=== PATIENT | female | born 1935 | race Caucasian/White ===

== ENCOUNTER 2019-10-08 12:22 | Observation (INO) ==
--- NOTE | 2019-10-08 12:54 | ERNOTE ---
Dyspnea - Date Date of Service: 10/08/19 - General Presenting Symptoms: shortness of breath Time Seen by Provider: 10/08/19 12:45 Source: RN notes reviewed, [facility] records Exam Limitations: dementia - Immun/Allergies/Home Medications Immunizations: IMMUNIZATION HX Immunizations Up to Date Yes History of Influenza Vaccine Yes Hx Pneumococcal Vaccination Yes Allergies/Adverse Reactions: Allergies No Known Allergies Allergy (Verified 10/08/19 17:03) Home Medications: HOME MEDICATIONS aspirin 81 mg chewable tablet 81 mg PO DAILY 04/21/19 [Last Taken Unknown] oxybutynin chloride 5 mg tablet 5 mg PO HS 04/21/19 [Last Taken Unknown] pantoprazole 40 mg tablet,delayed release 40 mg PO DAILY 04/21/19 [Last Taken Unknown] potassium chloride 10 mEq tablet,extended release 10 meq PO DAILY 04/21/19 [Last Taken Unknown] sertraline 100 mg tablet 75 mg PO DAILY 04/21/19 [Last Taken Unknown] Lactobacillus acidophilus 10,000 mmu cells PO BID 06/08/19 [Last Taken Unknown] acetaminophen 500 mg tablet 500 mg PO Q6H 06/08/19 [Last Taken Unknown] budesonide 0.5 mg/2 mL suspension for nebulization 0.5 mg IH BID #60 ml 06/08/19 [Last Taken Unknown] calcium carbonate 600 mg (1,500 mg)-vitamin D3 500 unit capsule 1 cap PO DAILY cap 06/08/19 [Last Taken Unknown] fludrocortisone 0.1 mg tablet 0.1 mg PO DAILY #28 tab 06/08/19 [Last Taken Unknown] ipratropium-albuterol 0.5 mg-3 mg(2.5 mg base)/3 mL nebulization soln 3 ml IH Q4H 06/08/19 [Last Taken Unknown] albuterol sulfate 2.5 mg IH Q2H PRN 07/13/19 [Last Taken Unknown] albuterol sulfate 90 mcg/actuation aerosol inhaler 1 puff IH Q4H PRN #85 g 07/13/19 [Last Taken Unknown] loperamide 2 mg capsule 2 mg PO Q4H PRN 07/13/19 [Last Taken Unknown] Cyanocobalamin (Vitamin B-12) [Vitamin B12] 500 mcg PO DAILY 10/08/19 [Last Taken Unknown] - History of Present Illness Narrative: The patient is a 84 year old female who presents from [facility] with report from nursing staff were told in report from the [facility] that patient had developed a cough with low grade fever which began today. There are reported associated symptoms of cough. The patient denies pain. There are no alleviating factors. There are no aggravating factors. Previous treatments have included: albuterol neb given [employer] with unknown improvement. The past medical history includes: COPD, GERD, anemia, depression, DM, PUD and renal cell carcinoma. The social history is positive for former smoker. The patient has had no known ill contacts. Patient upon arrival is oriented only to first name without respiratory distress noted. Patient wearing O2 2l/nc which was reported from [facility] as chronic use for patient. Review of Systems - Narrative Narrative: Unable to obtain ROS from patient due to AMS. ROS obtained from nursing and report from care facility which patient resides. - Review of Systems Constitutional: Absent: fever ENT: Absent: nose congestion, nasal drainage Respiratory: Present: shortness of breath, cough Gastrointestinal/Abdominal: Absent: vomiting, diarrhea Medical History (Last Reviewed 10/08/19 @ 13:34 by BANDAR Eng) Back pain (Chronic) Chronic respiratory failure (Chronic) Renal cell carcinoma (Chronic) Osteoarthritis (Chronic) Osteoporosis (Chronic) Type II diabetes mellitus (Chronic) HTN (hypertension) (Chronic) COPD (chronic obstructive pulmonary disease) (Chronic) Frequent falls Anemia Arthritis COPD (chronic obstructive pulmonary disease) Chronic respiratory failure Depression GERD (gastroesophageal reflux disease) Hypotension Osteoarthritis Osteoporosis PUD (peptic ulcer disease) Protein-energy malnutrition Renal cell carcinoma Type II diabetes mellitus Pleural effusion Surgical History: Surgical History (Last Reviewed 10/08/19 @ 13:34 by BANDAR Eng) H/O endoscopy Onset Date: ~04/22/13 History of appendectomy Onset Date: Unknown History of bronchoscopy Onset Date: ~04/28/18 History of cataract surgery Onset Date: ~09/01/02 History of colonoscopy Onset Date: ~06/2003 History of exploratory laparotomy Onset Date: ~12/23/12 2014 History of left knee replacement Onset Date: ~2002 History of nasal sinusotomy Onset Date: ~2007 History of nephrectomy Onset Date: ~08/25/95 Family History: Family History (Last Reviewed 10/08/19 @ 13:34 by BANDAR Eng) Brother Heart disease Mother Myocardial infarction Sister Cancer colon cancer Social History: (Last Reviewed 10/08/19 @ 13:34 by BANDAR Eng) Social History: [facility]: Yes current occupational status: retired Tobacco: Smoking Status: Former smoker Alcohol: alcohol intake: never Substance Use: substance use type: does not use Dietary Habits: caffeine: No Physical Exam - Physical Exam General Appearance: Present: wd/wn, alert, no apparent distress Head Exam: Present: normal inspection, no evidence of injury Eye Exam: Normal inspection: bilateral, PERRL: bilateral, EOMI: bilateral Neck: Present: normal inspection, nontender Respiratory: Present: no respiratory distress, no accessory muscle use, decreased breath sounds Cardiovascular/Chest: Present: regular rate, rhythm, no murmur Gastrointestinal/Abdominal: Present: normal bowel sounds, nontender, nondistended, soft, no organomegaly Extremity Exam: Present: no edema Neurological Exam: Present: alert, normal mood/affect, no motor/sensory deficits, disoriented to time, disoriented to place, disoriented to situation. Absent: motor weakness, disoriented to person - oriented to first name only Skin Exam: Present: normal color, warm/dry Progress - Date and Time Seen: Date and Time: 10/08/19 15:19 Case discussed with and will admit for persistent AMS. Will treat patient with antibiotics due to positive strep swab with mild elevation to WBC. Patient denies throat pain but due to altered mental status is difficult to exclude for actual infection. After discussion with requests MRI brain for further evaluation. Patient labs and UA not consistent with dehydration or severe infection along with negative cxr to explain new onset AMS. 10/08/19 17:13 Report from [facility] reports that patient is typically alert and oriented, patient was found to have alteration this am around 0800 during medication pass. - Results and Orders Patient's Lab Results:: I have reviewed the patient's lab results. - Vital Signs Patient's Vital Signs:: I have reviewed the patient's vital signs. Vital Signs: Vital Signs 10/08/19 12:27 Temperature 37.8 C Pulse Rate 97 Respiratory Rate 18 Blood Pressure 137/85 O2 Sat by Pulse Oximetry 97 - EKG EKG #1 EKG: NSR - rate - X-Ray X-Ray #1 X-Ray: chest Interpretation: Reviewed by me X-ray Comments: IMPRESSION: No acute cardiopulmonary process detected Electronically signed by Arnav Donovan M.D.. - CT/Ultrasound CT/Ultrasound Narrative: Impression: No acute intracranial process detected. Electronically signed by Arnav Donovan M.D.. - Progress/Reassessment Chief Complaint: Dyspnea Progress:: Unchanged Departure Clinical Impression: Strep throat Altered mental status Qualifiers: Altered mental status type: unspecified Qualified Code(s): R41.82 - Altered mental status, unspecified - Departure Disposition: Still a patient Condition: Stable
[2019-10-08 13:04] LABS: Hematocrit 39.7 % (37.0-47.0); Hemoglobin 12.5 gm/dL (12.5-16.0); Mean Cell Volume 96.1 fl (78-100); Mean Corpuscular Hemoglobin 30.3 pg (27-31); Mean Corpuscular Hgb Conc 31.5 g/dl (32-36); Mean Platelet Volume 10.6 fl (8-12.5); Neutrophil # 9.8 K/mm3 (1.3-6.0); Neutrophil % 76.6 % (42-75.0); Platelet Count 365 K/mm3 (150-450); Red Blood Count 4.13 M/mm3 (4.2-5.4); Red Cell Distribution Width 13.7 % (11.5-14.0); White Blood Count 12.8 K/mm3 (4.0-10.5)
[2019-10-08 13:20] LABS: ALT 11 U/L (19-67); AST 17 U/L (0-48); Albumin * 3.3 gm/dl (3.4-5.0); Alkaline Phosphatase * 114 U/L (50-170); Anion Gap 13.1 mmol/L (6.8-13.8); BUN/Creatinine Ratio 22.2 (9.0-21.6); Bilirubin, Total 0.3 mg/dL (0.0-1.1); Blood Urea Nitrogen 16 mg/dL (3-23); Ca. Corrected For Albumin 9.9 mg/dL (8.4-10.2); Calcium * 9.7 mg/dL (7.9-10.9); Carbon Dioxide 30.4 mmol/L (24-32.6); Chloride 99 mmol/L (97-106); Glucose * 150 mg/dL (70-110); Potassium 4.5 mmol/L (3.4-4.6); Sodium 138 mmol/L (132-142); Total Protein 8.6 gm/dL (6.2-8.2); Troponin I Less than 0.017 ng/mL (0.00-0.10)
[2019-10-08 14:00] LABS: Urine Bilirubin Negative (NEGATIVE); Urine Ketone Negative (NEGATIVE); Urine Nitrite Negative (NEGATIVE); Urine Protein Negative (NEGATIVE); Urine Specific Gravity 1.015 SP.GR. (1.005-1.010); Urine Urobilinogen Normal (NORMAL)
[2019-10-08 14:12] LABS: Urine Appearance Slightly Cloudy (CLEAR); Urine Bacteria None Seen; Urine Blood 5 /ul (NEGATIVE); Urine Color Yellow; Urine WBC None Seen /hpf (0-5)
[2019-10-08] MEDS ORDERED: LORazepam 2 MG/ML DISP.SYRIN IV ONE (15:49)
[2019-10-08] MEDS ORDERED: ACETAMINOPHEN 500 MG TABLET PO PRN (17:37)
[2019-10-08] MEDS ORDERED: PANTOPRAZOLE SODIUM 40 MG in NORMAL SALINE 100 ML IV SCH (17:45)
[2019-10-08] MEDS ORDERED: LOPERAMIDE HCL 2 MG CAPSULE PO PRN (17:47)
[2019-10-08] MEDS ORDERED: ALBUTEROL SULFATE 2.5 MG/0.5 ML VIAL.NEB IH PRN (17:47)
[2019-10-08] MEDS ORDERED: NON-FORMULARY 1 DOSE DOSE (Albuterol Sulfate 2.5 MG) IH PRN (17:47)
[2019-10-08] MEDS ORDERED: BUDESONIDE 0.5 MG/2 ML VIAL.NEB IH SCH (19:00)
[2019-10-08] MEDS ORDERED: ALBUTEROL SULFATE/IPRATROPIUM 3 ML NEBU IH SCH (19:00)
--- NOTE | 2019-10-08 19:05 | HP ---
Chief Complaint - Chief Complaint Date of Service: 10/08/19 Time of Service: 18:22 Chief Complaint: Px is nonverbal. History of Present Illness: 84-year-old female with past medical history of anemia, osteoarthritis, chronic respiratory failure, COPD, depression, GERD, hypertension, osteoporosis, peptic ulcer disease, renal cell carcinoma was brought to the ER from the [facility] for evaluation of cough and a low-grade fever as well as worsening confusion and disorientation x3 that started this morning. residential staff report that the patient is usually lucid and communicates without any issues but when staff went in to give med this morning she appeared confused and was not responding to questions or following commands. They denied any sick contacts. Patient did not show any motor weakness but had obvious aphasia, she spoke and nonsensical speech that were not appropriate to questions. No LOC or seizure activity were reported and staff report that the patient was in her usual state of health before being discovered in the state this morning. There were no recent illness reported. She also had shortness of breath and low saturation below her baseline. Patient is normally on oxygen by nasal cannula which maintains adequate oxygen saturation. EMS was called and patient was transported to the ER. Medical History (Last Reviewed 10/08/19 @ 17:02 by Mary Kate Olvera RN) Back pain (Chronic) Chronic respiratory failure (Chronic) Renal cell carcinoma (Chronic) Osteoarthritis (Chronic) Osteoporosis (Chronic) Type II diabetes mellitus (Chronic) HTN (hypertension) (Chronic) COPD (chronic obstructive pulmonary disease) (Chronic) Frequent falls Anemia Arthritis COPD (chronic obstructive pulmonary disease) Chronic respiratory failure Depression GERD (gastroesophageal reflux disease) Hypotension Osteoarthritis Osteoporosis PUD (peptic ulcer disease) Protein-energy malnutrition Renal cell carcinoma Type II diabetes mellitus Pleural effusion Surgical History: Surgical History (Last Reviewed 10/08/19 @ 17:02 by Mary Kate Olvera RN) H/O endoscopy Onset Date: ~04/22/13 History of appendectomy Onset Date: Unknown History of bronchoscopy Onset Date: ~04/28/18 History of cataract surgery Onset Date: ~09/01/02 History of colonoscopy Onset Date: ~06/2003 History of exploratory laparotomy Onset Date: ~12/23/12 2014 History of left knee replacement Onset Date: ~2002 History of nasal sinusotomy Onset Date: ~2007 History of nephrectomy Onset Date: ~08/25/95 Family History: Family History (Last Reviewed 10/08/19 @ 17:02 by Mary Kate Olvera RN) Brother Heart disease Mother Myocardial infarction Sister Cancer colon cancer Social History: (Last Reviewed 10/08/19 @ 17:02 by Mary Kate Olvera RN) Social History: custodial: Yes current occupational status: retired Tobacco: Smoking Status: Former smoker Alcohol: alcohol intake: never Substance Use: substance use type: does not use Dietary Habits: caffeine: No Peds Patient Hx - Developmental: No Pertinent Hx Peds Patient Hx - Medical: No Pertinent Hx Peds Patient Hx - Cardiac/Respiratory: No Pertinent Hx Peds Patient Hx - Surgical: No Surgical History Patient History - Cancer: No Hx of Cancer Review Of Systems (GEN) - Review of Systems Generalized/Overall Review: Present: No Symptoms Reported EENTM: Present: No Symptoms Reported Respiratory: Present: Shortness of Breath - Ordered so majority this tomorrow has been coming just although they take in almost 3 weeks that I still have not gotten anything so Cardiac: Present: No Symptoms Reported Abdominal: Present: No Symptoms Reported Genitourinary: Present: No Symptoms Reported Musculoskeletal: Present: No Symptoms Reported Neurological: Present: Other - disorientation x3, increasing confusion Skin: Present: No Symptoms Reported Endocrine: Present: No Symptoms Reported Immunizations: IMMUNIZATION HX Immunizations Up to Date Yes History of Influenza Vaccine Yes Hx Pneumococcal Vaccination Yes Allergies/Adverse Reactions: Allergies Allergy/AdvReac Type Severity Reaction Status Date / Time No Known Allergies Allergy Verified 10/08/19 17:03 Home Medications: HOME MEDICATIONS aspirin 81 mg chewable tablet 81 mg PO DAILY 04/21/19 [Last Taken 10/08/19] oxybutynin chloride 5 mg tablet 5 mg PO HS 04/21/19 [Last Taken 10/08/19] pantoprazole 40 mg tablet,delayed release 40 mg PO DAILY 04/21/19 [Last Taken 10/08/19] potassium chloride 10 mEq tablet,extended release 10 meq PO DAILY 04/21/19 [Last Taken 10/08/19] sertraline 100 mg tablet 75 mg PO DAILY 04/21/19 [Last Taken 10/08/19] Lactobacillus acidophilus 10,000 mmu cells PO BID 06/08/19 [Last Taken 10/08/19] acetaminophen 500 mg tablet 500 mg PO Q6H 06/08/19 [Last Taken Unknown] budesonide 0.5 mg/2 mL suspension for nebulization 0.5 mg IH BID #60 ml 06/08/19 [Last Taken 10/08/19] calcium carbonate 600 mg (1,500 mg)-vitamin D3 500 unit capsule 1 cap PO DAILY cap 06/08/19 [Last Taken 10/08/19] fludrocortisone 0.1 mg tablet 0.1 mg PO DAILY #28 tab 06/08/19 [Last Taken 10/08/19] ipratropium-albuterol 0.5 mg-3 mg(2.5 mg base)/3 mL nebulization soln 3 ml IH Q4H 06/08/19 [Last Taken 10/08/19] albuterol sulfate 2.5 mg IH Q2H PRN 07/13/19 [Last Taken 10/04/19] albuterol sulfate 90 mcg/actuation aerosol inhaler 1 puff IH Q4H PRN #85 g 07/13/19 [Last Taken 10/08/19] loperamide 2 mg capsule 2 mg PO Q4H PRN 07/13/19 [Last Taken Unknown] Cyanocobalamin (Vitamin B-12) [Vitamin B12] 500 mcg PO DAILY 10/08/19 [Last Taken 10/08/19] Pharbetol 1,000 mg PO Q6H PRN MDD 4g/24hr 10/08/19 [Last Taken Unknown] Exam - Exam Vital Signs: Vital Signs - Last Taken Temp 36.7 C 10/08/19 17:00 Pulse 89 10/08/19 17:00 Resp 22 H 10/08/19 17:00 BP 139/76 10/08/19 17:00 Pulse Ox 96 10/08/19 17:38 Constitutional: Present: Alert, Cooperative, Well developed, Elderly, Thin and frail ENT Exam: Present: normal ENT inspection, hearing grossly normal, pharynx normal, TMs normal Eye Exam: bilateral eye: normal inspection, PERRL, EOMI Neck: Present: non-tender, full range of motion, supple, normal inspection, trachea midline Back Exam: Present: normal inspection, no CVA tenderness, no vertebral tenderness Breasts: Present: Exam deferred Respiratory: Present: chest non-tender, lungs clear, normal breath sounds, no respiratory distress, no accessory muscle use Cardiovascular/Chest: Present: normal peripheral pulses, regular rate, rhythm, no chest tenderness, no edema, no gallop, no JVD, no murmur, no rub Peripheral Pulses: carotid (R): 3+, carotid (L): 3+, femoral (R): 3+, femoral (L): 3+ Abdomen: Present: Normal bowel sounds, soft, nontender, nondistended, no rebound tenderness, no hepatospenomegaly, no masses /Rectal: Present: Exam deferred Extremity: Present: normal range of motion, non-tender, normal inspection, no pedal edema, no calf tenderness, normal capillary refill Skin Exam: Present: normal color, warm/dry, no cyanosis Lymphatic: Present: no adenopathy Neurologic: Present: alert, normal mood/affect, aphasia, disoriented x 3 Appearance: Present: appropriate appearance, impaired insight, impaired recent memory Eye contact: Present: cooperative, good eye contact Thoughts: Present: no apparent hallucination Diagnostic Studies: Abnormal Lab Results 10/08/19 10/08/19 10/08/19 Range/Units 12:41 12:57 12:57 WBC 12.8 H (4.0-10.5) K/mm3 RBC 4.13 L (4.2-5.4) M/mm3 MCHC 31.5 L (32-36) g/dl Immature Gran # (Auto) 0.04 H (0.000-0.0310) K/mm3 Neutrophils % 76.6 H (42-75.0) % Lymphocytes % 15.7 L (20-51) % Neutrophils # 9.8 H (1.3-6.0) K/mm3 pO2 (83.0-108.0) mmHg Base Excess (-2.0-3.0) mmol/L ABG O2 Sat (Measured) (94.0-98.0) % BUN/Creatinine Ratio 22.2 H (9.0-21.6) Random Glucose 150 H (70-110) mg/dL ALT 11 L (19-67) U/L Total Protein 8.6 H (6.2-8.2) gm/dL Albumin 3.3 L (3.4-5.0) gm/dl Urine Blood (NEGATIVE) /ul Urine RBC (0-5) /hpf Group A Strep Rapid Positive H (NEGATIVE) 10/08/19 10/08/19 Range/Units 13:30 13:44 WBC (4.0-10.5) K/mm3 RBC (4.2-5.4) M/mm3 MCHC (32-36) g/dl Immature Gran # (Auto) (0.000-0.0310) K/mm3 Neutrophils % (42-75.0) % Lymphocytes % (20-51) % Neutrophils # (1.3-6.0) K/mm3 pO2 20.1 L* (83.0-108.0) mmHg Base Excess -2.7 L (-2.0-3.0) mmol/L ABG O2 Sat (Measured) 31.7 L (94.0-98.0) % BUN/Creatinine Ratio (9.0-21.6) Random Glucose (70-110) mg/dL ALT (19-67) U/L Total Protein (6.2-8.2) gm/dL Albumin (3.4-5.0) gm/dl Urine Blood 5 H (NEGATIVE) /ul Urine RBC 5-10 H (0-5) /hpf Group A Strep Rapid (NEGATIVE) Laboratory Results WBC 12.8 K/mm3 (4.0-10.5) H 10/08/19 12:57 RBC 4.13 M/mm3 (4.2-5.4) L 10/08/19 12:57 Hgb 12.5 gm/dL (12.5-16.0) 10/08/19 12:57 Hct 39.7 % (37.0-47.0) 10/08/19 12:57 MCV 96.1 fl (78-100) 10/08/19 12:57 MCH 30.3 pg (27-31) 10/08/19 12:57 MCHC 31.5 g/dl (32-36) L 10/08/19 12:57 RDW 13.7 % (11.5-14.0) 10/08/19 12:57 Plt Count 365 K/mm3 (150-450) 10/08/19 12:57 MPV 10.6 fl (8-12.5) 10/08/19 12:57 Immature Gran % (Auto) 0.30 % (0.001-0.429) 10/08/19 12:57 Immature Gran # (Auto) 0.04 K/mm3 (0.000-0.0310) H 10/08/19 12:57 Neutrophils % 76.6 % (42-75.0) H 10/08/19 12:57 Lymphocytes % 15.7 % (20-51) L 10/08/19 12:57 Monocytes % 6.0 % (0.0-9) 10/08/19 12:57 Eosinophils % 0.9 % (0.0-3.0) 10/08/19 12:57 Basophils % 0.5 % (0.0-1.0) 10/08/19 12:57 Nucleated RBC % 0.0 k/mm3 (0-1) 10/08/19 12:57 Neutrophils # 9.8 K/mm3 (1.3-6.0) H 10/08/19 12:57 Lymphocytes # 2.01 k/mm3 (1.5-3.5) 10/08/19 12:57 Monocytes # 0.8 k/mm3 (0.0-1.0) 10/08/19 12:57 Eosinophils # 0.1 k/mm3 (0.0-0.7) 10/08/19 12:57 Absolute Basophils 0.1 k/mm3 (0.0-0.1) 10/08/19 12:57 pCO2 38.4 mmHg (32.0-45.0) 10/08/19 13:30 pO2 20.1 mmHg (83.0-108.0) L* 10/08/19 13:30 HCO3 22.1 mmol/L (21.0-28.0) 10/08/19 13:30 Total CO2 23.3 mmol/L (19.0-24.0) 10/08/19 13:30 Base Excess -2.7 mmol/L (-2.0-3.0) L 10/08/19 13:30 ABG pH 7.38 (7.35-7.45) 10/08/19 13:30 ABG O2 Sat (Measured) 31.7 % (94.0-98.0) L 10/08/19 13:30 Sodium 138 mmol/L (132-142) 10/08/19 12:57 Plasma Sodium 139 mmol/L (130-142) 10/08/19 12:57 Potassium 4.5 mmol/L (3.4-4.6) 10/08/19 12:57 Chloride 99 mmol/L (97-106) 10/08/19 12:57 Carbon Dioxide 30.4 mmol/L (24-32.6) 10/08/19 12:57 Anion Gap 13.1 mmol/L (6.8-13.8) 10/08/19 12:57 BUN 16 mg/dL (3-23) 10/08/19 12:57 Creatinine 0.72 mg/dL (0.4-1.4) 10/08/19 12:57 Est GFR (Non-Af Amer) 82 mL/min (60-130) 10/08/19 12:57 BUN/Creatinine Ratio 22.2 (9.0-21.6) H 10/08/19 12:57 Random Glucose 150 mg/dL (70-110) H 10/08/19 12:57 Lactic Acid, Venous 1.3 mmol/L (0.4-2.0) 10/08/19 13:00 Calcium 9.7 mg/dL (7.9-10.9) 10/08/19 12:57 Calcium Adj for Albumin 9.9 mg/dL (8.4-10.2) 10/08/19 12:57 Total Bilirubin 0.3 mg/dL (0.0-1.1) 10/08/19 12:57 AST 17 U/L (0-48) 10/08/19 12:57 ALT 11 U/L (19-67) L 10/08/19 12:57 Alkaline Phosphatase 114 U/L (50-170) 10/08/19 12:57 Troponin I Less than 0.017 ng/mL (0.00-0.10) 10/08/19 12:57 Total Protein 8.6 gm/dL (6.2-8.2) H 10/08/19 12:57 Albumin 3.3 gm/dl (3.4-5.0) L 10/08/19 12:57 Urine Color Yellow 10/08/19 13:44 Urine Appearance Slightly cloudy (CLEAR) 10/08/19 13:44 Urine pH 7.0 pH (5.0-7.0) 10/08/19 13:44 Ur Specific [place] 1.015 SP.GR. (1.005-1.010) 10/08/19 13:44 Urine Protein Negative mg/dL (NEGATIVE) 10/08/19 13:44 Urine Glucose (UA) Negative mg/dL (NEGATIVE) 10/08/19 13:44 Urine Ketones Negative mg/dL (NEGATIVE) 10/08/19 13:44 Urine Blood 5 /ul (NEGATIVE) H 10/08/19 13:44 Urine Nitrate Negative (NEGATIVE) 10/08/19 13:44 Urine Bilirubin Negative mg/dl (NEGATIVE) 10/08/19 13:44 Urine Urobilinogen Normal EU/dl (NORMAL) 10/08/19 13:44 Ur Leukocyte Esterase Negative /ul (NEGATIVE) 10/08/19 13:44 Urine RBC 5-10 /hpf (0-5) H 10/08/19 13:44 Urine WBC None seen /hpf (0-5) 10/08/19 13:44 Ur Epithelial Cells 0-5 /hpf (0-5) 10/08/19 13:44 Urine Bacteria None seen (NONE) 10/08/19 13:44 Urine Culture Comments Culture to follow 10/08/19 13:44 Influenza Type A Ag Negative (NEGATIVE) 10/08/19 12:41 Influenza Type B Ag Negative (NEGATIVE) 10/08/19 12:41 Group A Strep Rapid Positive (NEGATIVE) H 10/08/19 12:41 Assessment/Plan - Procedures Results: Patient was evaluated medical chart was reviewed and decision to admit to observation for a diagnosis of altered mental status and late subacute hemorrhagic infarct was made. 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 At the moment she presents stable vitals and is saturating adequately, there is no evidence of fever or any other symptoms. She was admitted to [facility] when she will be monitored on telemetry and will be treated with nebulizer treatments and oxygen to treat her COPD. In the meantime we will continue to monitor the patient and treat her with antibiotics for a positive streptococcal and mildly elevated WBCs on lab. Follow-up labs will be ordered for tomorrow morning. - Assessment/Plan (1) Subacute intracerebral hemorrhage Problem: Acute (2) Altered mental status Problem: Acute Qualifiers: Altered mental status type: unspecified Qualified Code(s): R41.82 - Altered mental status, unspecified (3) Strep throat Problem: Acute (4) Chronic respiratory failure Problem: Chronic Qualifiers: (5) Osteoporosis Problem: Chronic Qualifiers: (6) Cerebral amyloid angiopathy Problem: Chronic (7) ESR raised Problem: Acute (8) Encephalopathy acute Problem: Acute
[2019-10-08] MEDS ORDERED: AMOXICILLIN TRIHYDRATE 500 MG CAPSULE PO SCH (21:00)
[2019-10-08] MEDS ORDERED: LACTOBACILLUS ACIDOPHILUS 1 EACH CAPSULE PO SCH (21:00)
[2019-10-08] MEDS ORDERED: OXYBUTYNIN CHLORIDE 5 MG TABLET PO SCH (21:00)
[2019-10-08] MEDS ORDERED: INSULIN REGULAR, HUMAN 100 UNITS/ML VIAL SC SCH (21:00)
--- NOTE | 2019-10-08 22:12 | DS ---
Transfer Discharge Summary - Diagnosis(s)/Problems (1) Subacute intracerebral hemorrhage Problem: Acute (2) Altered mental status Problem: Acute (3) Strep throat Problem: Acute (4) Chronic respiratory failure Problem: Chronic (5) Osteoporosis Problem: Chronic (6) Cerebral amyloid angiopathy Problem: Chronic (7) ESR raised Problem: Acute (8) Encephalopathy acute Problem: Acute - Course Description of Stay: Patient continues with altered mental status, she is disoriented in person time and place. She is also unable to follow commands and appears to not understand spoken language. Patient's [id number] who is now at her bedside is very concerned about the symptoms because she says her [id number] is usually very sharp and lucid. At the moment the patient maintains stable vitals and has not developed any new symptoms however a thorough neurological assessment is not possible at this time due to receptive and expressive aphasia and the inability to follow commands. Neurology service as well as the stroke team at the [facility] were contacted and the case was discussed, and it was determined that it would be best that the patient be transferred to a facility with higher level of care so that she can undergo a thorough work-up which would include an EEG and a possible lumbar puncture. The patient's condition was explained to the patient's [id number] who is her power of fish processor and she agrees to the patient being transferred to the for thorough evaluation and treatment. Therefore we will transfer patient in an ambulance to the [facility] ER. Procedures Performed: none - Results and Findings Results and Findings: Laboratory Results - last 24 hr 10/08/19 10/08/19 10/08/19 12:41 12:41 12:57 WBC 12.8 H RBC 4.13 L Hgb 12.5 Hct 39.7 MCV 96.1 MCH 30.3 MCHC 31.5 L RDW 13.7 Plt Count 365 MPV 10.6 Immature Gran % (Auto) 0.30 Immature Gran # (Auto) 0.04 H Neutrophils % 76.6 H Lymphocytes % 15.7 L Monocytes % 6.0 Eosinophils % 0.9 Basophils % 0.5 Nucleated RBC % 0.0 Neutrophils # 9.8 H Lymphocytes # 2.01 Monocytes # 0.8 Eosinophils # 0.1 Absolute Basophils 0.1 ESR pCO2 pO2 HCO3 Total CO2 Base Excess ABG pH ABG O2 Sat (Measured) Sodium Plasma Sodium Potassium Chloride Carbon Dioxide Anion Gap BUN Creatinine Est GFR (Non-Af Amer) BUN/Creatinine Ratio Random Glucose Lactic Acid, Venous Calcium Calcium Adj for Albumin Total Bilirubin AST ALT Alkaline Phosphatase Troponin I Total Protein Albumin Urine Color Urine Appearance Urine pH Ur Specific [place] Urine Protein Urine Glucose (UA) Urine Ketones Urine Blood Urine Nitrate Urine Bilirubin Urine Urobilinogen Ur Leukocyte Esterase Urine RBC Urine WBC Ur Epithelial Cells Urine Bacteria Urine Culture Comments Influenza Type A Ag Negative Influenza Type B Ag Negative Group A Strep Rapid Positive H 10/08/19 10/08/19 10/08/19 12:57 13:00 13:30 WBC RBC Hgb Hct MCV MCH MCHC RDW Plt Count MPV Immature Gran % (Auto) Immature Gran # (Auto) Neutrophils % Lymphocytes % Monocytes % Eosinophils % Basophils % Nucleated RBC % Neutrophils # Lymphocytes # Monocytes # Eosinophils # Absolute Basophils ESR pCO2 38.4 pO2 20.1 L* HCO3 22.1 Total CO2 23.3 Base Excess -2.7 L ABG pH 7.38 ABG O2 Sat (Measured) 31.7 L Sodium 138 Plasma Sodium 139 Potassium 4.5 Chloride 99 Carbon Dioxide 30.4 Anion Gap 13.1 BUN 16 Creatinine 0.72 Est GFR (Non-Af Amer) 82 BUN/Creatinine Ratio 22.2 H Random Glucose 150 H Lactic Acid, Venous 1.3 Calcium 9.7 Calcium Adj for Albumin 9.9 Total Bilirubin 0.3 AST 17 ALT 11 L Alkaline Phosphatase 114 Troponin I Less than 0.017 Total Protein 8.6 H Albumin 3.3 L Urine Color Urine Appearance Urine pH Ur Specific [place] Urine Protein Urine Glucose (UA) Urine Ketones Urine Blood Urine Nitrate Urine Bilirubin Urine Urobilinogen Ur Leukocyte Esterase Urine RBC Urine WBC Ur Epithelial Cells Urine Bacteria Urine Culture Comments Influenza Type A Ag Influenza Type B Ag Group A Strep Rapid 10/08/19 10/08/19 13:44 15:00 WBC RBC Hgb Hct MCV MCH MCHC RDW Plt Count MPV Immature Gran % (Auto) Immature Gran # (Auto) Neutrophils % Lymphocytes % Monocytes % Eosinophils % Basophils % Nucleated RBC % Neutrophils # Lymphocytes # Monocytes # Eosinophils # Absolute Basophils ESR 70 H pCO2 pO2 HCO3 Total CO2 Base Excess ABG pH ABG O2 Sat (Measured) Sodium Plasma Sodium Potassium Chloride Carbon Dioxide Anion Gap BUN Creatinine Est GFR (Non-Af Amer) BUN/Creatinine Ratio Random Glucose Lactic Acid, Venous Calcium Calcium Adj for Albumin Total Bilirubin AST ALT Alkaline Phosphatase Troponin I Total Protein Albumin Urine Color Yellow Urine Appearance Slightly cloudy Urine pH 7.0 Ur Specific [place] 1.015 Urine Protein Negative Urine Glucose (UA) Negative Urine Ketones Negative Urine Blood 5 H Urine Nitrate Negative Urine Bilirubin Negative Urine Urobilinogen Normal Ur Leukocyte Esterase Negative Urine RBC 5-10 H Urine WBC None seen Ur Epithelial Cells 0-5 Urine Bacteria None seen Urine Culture Comments Culture to follow Influenza Type A Ag Influenza Type B Ag Group A Strep Rapid - Medications Medications: Active Medications Albuterol/Ipratropium (Duoneb 2.5-0.5mg/3ml Soln) 3 ml IH Q4HRT [facility] Stop: 11/07/19 19:01 Last Admin: 10/08/19 20:05 Dose: 3 ml Documented by: Amoxicillin (Amoxil) 500 mg PO BID [facility] Stop: 11/07/19 21:01 Last Admin: 10/08/19 21:18 Dose: 500 mg Documented by: Budesonide (Pulmicort Respules) 0.5 mg IH BIDRT [facility] Stop: 11/07/19 19:01 Last Admin: 10/08/19 20:09 Dose: 0.5 mg Documented by: Pantoprazole Sodium 40 mg/ (Sodium Chloride) 100 mls @ 400 mls/hr IV Q12H [facility] Stop: 11/07/19 17:46 Last Admin: 10/08/19 19:58 Dose: 400 mls/hr Documented by: Insulin Human Regular (Humulin R) 0 units SC [facility]; Protocol Stop: 11/07/19 21:01 Last Admin: 10/08/19 21:27 Dose: 4 units Documented by: Lactobacillus Acidophilus (Bacid) 1 each PO BID [facility] Stop: 11/07/19 21:01 Last Admin: 10/08/19 21:18 Dose: 1 each Documented by: Oxybutynin Chloride (Ditropan) 5 mg PO HS [facility] Stop: 11/07/19 21:01 Last Admin: 10/08/19 21:19 Dose: 5 mg Documented by: Discontinued Medications Lorazepam (Ativan) 0.25 mg IV ONCE ONE Stop: 10/08/19 15:50 Last Admin: 10/08/19 16:05 Dose: 0.25 mg Documented by: - Disposition Disposition: Short Term Hospital Inpatient Condition: Stable Discharge Date: 10/08/19 Discharge Time: 22:11
[2019-10-08 23:49] VITALS: BP 119/77
[2019-10-09] MEDS ORDERED: DOCUSATE SODIUM 100 MG CAPSULE PO SCH (09:00)
[2019-10-09] MEDS ORDERED: SERTRALINE HCL 50 MG TABLET PO SCH (09:00)
[2019-10-09] MEDS ORDERED: POTASSIUM CHLORIDE 10 MEQ TABLET.SA PO SCH (09:00)
[2019-10-09] MEDS ORDERED: CALCIUM CARBONATE/VITAMIN D3 1 TAB TABLET PO SCH (09:00)
[2019-10-09] MEDS ORDERED: FLUDROCORTISONE ACETATE 0.1 MG TABLET PO SCH (09:00)
== END 2019-10-08 22:58 | disposition short-term general hospital (02) ==
LOC: ER 12:22 → MS 12:22
PROVIDERS: ADMIT Family Medicine; ATTEND Family Medicine
CPT/HCPCS: 36415; 36600; 70450; 70553; 71010; 71045; 80053; 81001; 82803; 83605; 84484; 85025; 85652; 87040; 87081; 87086; 87400; 87430; 87449; 93005; 94640; 94664; 94760; 96365; 96372; 96375; 99284; 99285; A9576

== ENCOUNTER 2020-04-27 12:40 | Inpatient (IN) ==
--- NOTE | 2020-04-27 12:46 | ERNOTE ---
Hip Pain HPI - General Chief Complaints:: L hip pain Time Seen by Provider: 04/27/20 13:12 Source: patient, RN notes reviewed, EMS notes reviewed, correction records Exam Limitations: no limitations - History of Present Illness Initial Comments: Patient is an 84-year-old white female with past medical history significant for COPD, chronic respiratory failure, hypertension, diabetes was getting up from a chair when she caught her leg and fell. She was noted to have external rotation and shortening of her left hip with complaint of left hip pain. She was brought in via EMS for possible hip fracture. Patient has no other complaints. She denies any loss of consciousness. She denies any urinary symptoms. She states that her pain is okay at the moment declines any pain medicines. Timing/Duration: just prior to arrival Severity: moderate Hip Pain Location: hip (L) Method of Injury/Prior Injury: fell Modifying Factors - (Improves): Reports: immobilization Modifying Factors - (Worsens): Reports: jarring, movement Associated Symptoms: denies symptoms - Immun/Allergies/Home Medications Immunization: IMMUNIZATION HX Immunizations Up to Date Yes History of Influenza Vaccine Yes Hx Pneumococcal Vaccination Yes Allergies/Adverse Reactions: Allergies Allergy/AdvReac Type Severity Reaction Status Date / Time No Known Allergies Allergy Verified 04/27/20 12:54 Home Medications: Ambulatory Orders Medication Instructions Recorded aspirin 81 mg chewable tablet 81 mg PO DAILY 04/21/19 oxybutynin chloride 5 mg tablet 2.5 mg PO HS 04/21/19 potassium chloride 10 mEq 10 meq PO DAILY 04/21/19 tablet,extended release sertraline 100 mg tablet 75 mg PO DAILY 04/21/19 acetaminophen 500 mg tablet 2 tab PO Q6H PRN 06/08/19 budesonide 0.5 mg/2 mL suspension 0.5 mg IH BID #60 ml 06/08/19 for nebulization calcium carbonate 600 mg (1,500 1 tab PO TID cap 06/08/19 mg)-vitamin D3 500 unit capsule fludrocortisone 0.1 mg tablet 0.1 mg PO DAILY #28 tab 06/08/19 ipratropium 0.5 mg-albuterol 3 mg 3 ml IH Q6H PRN 06/08/19 (2.5 mg base)/3 mL nebulization soln albuterol sulfate 1.25 mg IH Q2H PRN 07/13/19 albuterol sulfate 90 mcg/actuation 2 puff IH Q4H PRN #85 g 07/13/19 aerosol inhaler Cyanocobalamin (Vitamin B-12) 500 mcg PO DAILY 10/08/19 [Vitamin B12] Lactobacillus Acidophilus 2 ea PO BID 11/19/19 [Acidophilus] Omeprazole 40 mg PO DAILY 02/04/20 Review of Systems - Review of Systems Constitutional: Absent: fatigue, fever, malaise, recent illness, weakness EENTM: Absent: blurred vision, double vision, sore throat Respiratory: Present: short of breath. Absent: cough, orthopnea, wheezing Cardiology: Absent: chest pain, edema, palpitations Gastrointestinal/Abdominal: Absent: abdominal pain, constipation Genitourinary: Absent: dysuria, hematuria Musculoskeletal: Present: joint pain, muscle stiffness. Absent: back pain, muscle pain, neck pain Skin: Present: no symptoms reported Neurological: Absent: dizziness/light-headness, numbness, paresthesia, pre- existing deficit Endocrine: Absent: excessive sweating, flushing, intolerance to cold, intolerance to heat Hematologic/Lymphatic: Absent: blood clots, easy bleeding Pain Exam - Physical Exam General Appearance: Present: WD/WN, no apparent distress, alert, other - Mildly hard of hearing Eyes, Ears, Nose, Throat Exam: Present: normal ENT inspection Neck Exam: Present: non-tender, full range of motion. Absent: stiff neck Cardiovascular/Respiratory: Present: regular rate, rhythm, normal peripheral pulses, normal breath sounds, no respiratory distress Gastrointestinal/Abdominal: Present: normal bowel sounds, no organomegaly, no pulsatile mass, non tender Extremity Exam: Present: no pedal edema, other - Patient is tender over her left trochanteric area Neurologic: Present: computational linguist II-XII nml as tested, oriented x 3 Skin Exam: Present: normal color, warm/dry ED Progress - VITAL SIGNS Patient's Vital Signs:: I have reviewed the patient's vital signs. - RESULTS AND ORDERS Patient's Lab Results:: I have reviewed the patient's lab results. Results and Orders: 04/27/20 13:17 Laboratory Tests 04/27/20 13:02 WBC 9.5 RBC 4.75 Hgb 13.0 Hct 43.5 MCV 91.6 MCH 27.4 MCHC 29.9 L RDW 14.0 Plt Count 286 MPV 11.3 Immature Gran % (Auto) 0.50 H Immature Gran # (Auto) 0.05 H Neutrophils % 67.0 Lymphocytes % 22.7 Monocytes % 6.3 Eosinophils % 2.8 Basophils % 0.7 Nucleated RBC % 0.0 Neutrophils # 6.4 H Lymphocytes # 2.16 Monocytes # 0.6 Eosinophils # 0.3 Absolute Basophils 0.1 04/27/20 13:29 Laboratory Tests 04/27/20 13:02 Sodium 139 Plasma Sodium 140 Potassium 4.4 Chloride 100 Carbon Dioxide 37.1 H Anion Gap 6.3 L BUN 22 Creatinine 0.77 Est GFR (Non-Af Amer) 76 BUN/Creatinine Ratio 28.6 H Random Glucose 159 H Calcium 9.4 Calcium Adj for Albumin 9.9 Total Bilirubin 0.2 AST 23 ALT 25 Alkaline Phosphatase 134 Troponin I 0.022 Total Protein 7.9 Albumin 3.0 L - EKG EKG #1 EKG: nonspecific ST T wave chg, unchanged from - 02/04/20 EKG Read: Interp. by me - TRANSFER OF CARE Expected Disposition: Admit Additional Notes:: Case discussed with Anjum Torres. Will admit to medicine for medical management and preop clearance. Patient discussed with Dr. Smith who is agreeable to admit patient and do preoperative clearance and management medical issues postoperatively. Departure - Departure Clinical Impression: Intertrochanteric fracture of left femur Qualifiers: Encounter type: initial encounter Fracture type: closed Fracture alignment: displaced Qualified Code(s): S72.142A - Displaced intertrochanteric fracture of left femur, initial encounter for closed fracture Chronic respiratory failure Qualifiers: Respiratory failure complication: hypoxia Qualified Code(s): J96.11 - Chronic respiratory failure with hypoxia COPD (chronic obstructive pulmonary disease) Qualifiers: COPD type: chronic bronchitis Chronic bronchitis type: unspecified Qualified Code(s): J42 - Unspecified chronic bronchitis Disposition: Still a patient Condition: Stable
[2020-04-27 13:11] LABS: Hematocrit 43.5 % (37.0-47.0); Mean Cell Volume 91.6 fl (78-100); Mean Corpuscular Hemoglobin 27.4 pg (27-31); Mean Corpuscular Hgb Conc 29.9 g/dl (32-36); Mean Platelet Volume 11.3 fl (8-12.5); Neutrophil # 6.4 K/mm3 (1.3-6.0); Platelet Count 286 K/mm3 (150-450); Red Blood Count 4.75 M/mm3 (4.2-5.4); White Blood Count 9.5 K/mm3 (4.0-10.5)
[2020-04-27 13:23] LABS: Anion Gap 6.3 mmol/L (6.8-13.8); BUN/Creatinine Ratio 28.6 (9.0-21.6); Bilirubin, Total 0.2 mg/dL (0.0-1.1); Ca. Corrected For Albumin 9.9 mg/dL (8.4-10.2); Calcium * 9.4 mg/dL (7.9-10.9); Carbon Dioxide 37.1 mmol/L (24-32.6); Potassium 4.4 mmol/L (3.4-4.6); Total Protein 7.9 gm/dL (6.2-8.2); Troponin I 0.022 ng/mL (0.00-0.10)
[2020-04-27 14:11] LABS: Urine Bilirubin Negative (NEGATIVE); Urine Ketone Negative (NEGATIVE); Urine Nitrite Negative (NEGATIVE); Urine Protein Negative (NEGATIVE); Urine Urobilinogen Normal (NORMAL)
[2020-04-27] MEDS ORDERED: HEPARIN SODIUM,PORCINE 5,000 UNITS/ML VIAL SC SCH (14:30)
[2020-04-27 14:32] LABS: Urine Appearance Clear (CLEAR); Urine Bacteria TRACE; Urine Blood 5 /ul (NEGATIVE); Urine Color Yellow; Urine RBC TRACE /hpf (0-5); Urine WBC 25-50 /hpf (0-5); Urine Yeast Few - 1+
[2020-04-27] MEDS ORDERED: NORMAL SALINE 1,000 ML IV ONE (17:08)
[2020-04-27] MEDS ORDERED: ALBUTEROL SULFATE 2.5 MG/0.5 ML VIAL.NEB IH PRN ×2 (17:08)
[2020-04-27] MEDS ORDERED: MORPHINE SULFATE 4 MG/ML SYRG IV PRN (17:11)
[2020-04-27] MEDS: ACETAMINOPHEN 1,000 MG/100 ML BTL IV PRN ×2 (17:13→23:48)
--- NOTE | 2020-04-27 17:32 | HP ---
Chief Complaint - Chief Complaint Date of Service: 04/27/20 Time of Service: 17:19 Chief Complaint: I fell and hurt my left hip History of Present Illness: 84-year-old female with past medical history of osteoporosis, osteoarthritis, COPD, frequent falls, protein caloric malnutrition, peptic ulcer disease, depression, was brought to the ER by EMS from the [facility] after the patient fell while rising up out of the wheelchair. This patient has been known to fall several times in the past most likely due to issues with balance. She reports this morning while attempting to rise out of her wheelchair her foot got caught in 1 of the pedals and she tripped falling onto her left side. She immediately felt a sharp pain and sustained a deformity that caused shortening and external rotation of the left lower extremity. She denied any loss of consciousness during the event. Medical History (Last Reviewed 04/27/20 @ 15:37 by Ilan Villagomez RN) Back pain (Chronic) Chronic respiratory failure (Chronic) Renal cell carcinoma (Chronic) Osteoarthritis (Chronic) Osteoporosis (Chronic) Type II diabetes mellitus (Chronic) HTN (hypertension) (Chronic) COPD (chronic obstructive pulmonary disease) (Chronic) Frequent falls Anemia Arthritis COPD (chronic obstructive pulmonary disease) Chronic respiratory failure Depression GERD (gastroesophageal reflux disease) Hypotension Osteoarthritis Osteoporosis PUD (peptic ulcer disease) Protein-energy malnutrition Renal cell carcinoma Type II diabetes mellitus Pleural effusion Surgical History: Surgical History (Last Reviewed 04/27/20 @ 15:37 by Ilan Villagomez RN) H/O endoscopy Onset Date: ~04/22/13 History of appendectomy Onset Date: Unknown History of bronchoscopy Onset Date: ~04/28/18 History of cataract surgery Onset Date: ~09/01/02 History of colonoscopy Onset Date: ~06/2003 History of exploratory laparotomy Onset Date: ~12/23/12 2014 History of left knee replacement Onset Date: ~2002 History of nasal sinusotomy Onset Date: ~2007 History of nephrectomy Onset Date: ~08/25/95 Family History: Family History (Last Reviewed 04/27/20 @ 15:37 by Ilan Villagomez RN) Brother Heart disease Mother Myocardial infarction Sister Cancer colon cancer Social History: (Last Reviewed 04/27/20 @ 15:37 by Ilan Villagomez RN) Social History: retirement: Yes current occupational status: retired Tobacco: Smoking Status: Former smoker Alcohol: alcohol intake: never Substance Use: substance use type: does not use Dietary Habits: caffeine: No Peds Patient Hx - Developmental: No Pertinent Hx Peds Patient Hx - Medical: No Pertinent Hx Peds Patient Hx - Cardiac/Respiratory: No Pertinent Hx Peds Patient Hx - Surgical: No Surgical History Patient History - Cancer: No Hx of Cancer Review Of Systems (GEN) - Review of Systems Generalized/Overall Review: Present: No Symptoms Reported EENTM: Present: No Symptoms Reported Respiratory: Present: No Symptoms Reported Cardiac: Present: No Symptoms Reported Abdominal: Present: No Symptoms Reported Genitourinary: Present: No Symptoms Reported Musculoskeletal: Present: Joint Pain - Left hip pain Neurological: Present: No Symptoms Reported Skin: Present: No Symptoms Reported Endocrine: Present: No Symptoms Reported Immunizations: IMMUNIZATION HX Immunizations Up to Date Yes History of Influenza Vaccine Yes Hx Pneumococcal Vaccination Yes Allergies/Adverse Reactions: Allergies Allergy/AdvReac Type Severity Reaction Status Date / Time No Known Allergies Allergy Verified 04/27/20 12:54 Home Medications: HOME MEDICATIONS aspirin 81 mg chewable tablet 81 mg PO DAILY 04/21/19 [Last Taken 10/08/19] oxybutynin chloride 5 mg tablet 2.5 mg PO HS 04/21/19 [Last Taken 10/08/19] potassium chloride 10 mEq tablet,extended release 10 meq PO DAILY 04/21/19 [Last Taken 10/08/19] sertraline 100 mg tablet 75 mg PO DAILY 04/21/19 [Last Taken 10/08/19] acetaminophen 500 mg tablet 2 tab PO Q6H PRN 06/08/19 [Last Taken Unknown] budesonide 0.5 mg/2 mL suspension for nebulization 0.5 mg IH BID #60 ml 06/08/19 [Last Taken 10/08/19] calcium carbonate 600 mg (1,500 mg)-vitamin D3 500 unit capsule 1 tab PO TID cap 06/08/19 [Last Taken 10/08/19] fludrocortisone 0.1 mg tablet 0.1 mg PO DAILY #28 tab 06/08/19 [Last Taken 10/08/19] ipratropium 0.5 mg-albuterol 3 mg (2.5 mg base)/3 mL nebulization soln 3 ml IH Q6H PRN 06/08/19 [Last Taken 10/08/19] albuterol sulfate 1.25 mg IH Q2H PRN 07/13/19 [Last Taken 10/04/19] albuterol sulfate 90 mcg/actuation aerosol inhaler 2 puff IH Q4H PRN #85 g 07/13/19 [Last Taken 10/08/19] Cyanocobalamin (Vitamin B-12) [Vitamin B12] 500 mcg PO DAILY 10/08/19 [Last Taken 10/08/19] Lactobacillus Acidophilus [Acidophilus] 2 ea PO BID 11/19/19 [Last Taken Unknown] Omeprazole 40 mg PO DAILY 02/04/20 [Last Taken Unknown] Exam - Exam Vital Signs: Vital Signs - Last Taken Temp 37.0 C 04/27/20 16:55 Pulse 98 04/27/20 16:55 Resp 18 04/27/20 16:55 BP 136/82 04/27/20 16:55 Pulse Ox 98 04/27/20 16:55 Constitutional: Present: Alert, Oriented x3, Cooperative, Well developed, No distress, Elderly, Thin and frail ENT Exam: Present: normal ENT inspection, pharynx normal, TMs normal, hard of hearing Eye Exam: bilateral eye: normal inspection, PERRL, EOMI Neck: Present: non-tender, full range of motion, supple, normal inspection, trachea midline Back Exam: Present: normal inspection, no CVA tenderness, no vertebral tenderness Breasts: Present: Exam deferred Respiratory: Present: chest non-tender, no respiratory distress, no accessory muscle use, rhonchi - Scattered rhonchi bilaterally Cardiovascular/Chest: Present: normal peripheral pulses, regular rate, rhythm, no chest tenderness, no edema, no gallop, no JVD, no murmur, no rub Peripheral Pulses: carotid (R): 3+, carotid (L): 3+, dorsalis-pedis (R): 2+, dorsalis-pedis (L): 2+ Abdomen: Present: Normal bowel sounds, soft, nontender, nondistended, no rebound tenderness, no hepatospenomegaly, no masses /Rectal: Present: Exam deferred Extremity: Present: no pedal edema, no calf tenderness, normal capillary refill, leg pain, other - Shortening and external rotation of left lower extremity Skin Exam: Present: normal color, warm/dry, no cyanosis Lymphatic: Present: no adenopathy Neurologic: Present: end worker II-XII nml as tested, normal cerebellar test, no motor/sensory deficits, alert, normal mood/affect, oriented x 3 Appearance: Present: appropriate appearance, appropriate insight, neat, no memory impairment Eye contact: Present: cooperative, good eye contact, normal speech Thoughts: Present: normal thought pattern, no apparent hallucination Diagnostic Studies: Abnormal Lab Results 04/27/20 04/27/20 04/27/20 Range/Units 13:02 13:02 13:54 MCHC 29.9 L (32-36) g/dl Immature Gran % (Auto) 0.50 H (0.001-0.429) % Immature Gran # (Auto) 0.05 H (0.000-0.0310) K/mm3 Neutrophils # 6.4 H (1.3-6.0) K/mm3 Carbon Dioxide 37.1 H (24-32.6) mmol/L Anion Gap 6.3 L (6.8-13.8) mmol/L BUN/Creatinine Ratio 28.6 H (9.0-21.6) Random Glucose 159 H (70-110) mg/dL Albumin 3.0 L (3.4-5.0) gm/dl Urine Glucose (UA) 100 H (NEGATIVE) mg/dL Urine Blood 5 H (NEGATIVE) /ul Ur Leukocyte Esterase 25 H (NEGATIVE) /ul Urine WBC 25-50 H (0-5) /hpf Urine Yeast Few - 1+ H (NONE) Laboratory Results WBC 9.5 K/mm3 (4.0-10.5) 04/27/20 13:02 RBC 4.75 M/mm3 (4.2-5.4) 04/27/20 13:02 Hgb 13.0 gm/dL (12.5-16.0) 04/27/20 13:02 Hct 43.5 % (37.0-47.0) 04/27/20 13:02 MCV 91.6 fl (78-100) 04/27/20 13:02 MCH 27.4 pg (27-31) 04/27/20 13:02 MCHC 29.9 g/dl (32-36) L 04/27/20 13:02 RDW 14.0 % (11.5-14.0) 04/27/20 13:02 Plt Count 286 K/mm3 (150-450) 04/27/20 13:02 MPV 11.3 fl (8-12.5) 04/27/20 13:02 Immature Gran % (Auto) 0.50 % (0.001-0.429) H 04/27/20 13:02 Immature Gran # (Auto) 0.05 K/mm3 (0.000-0.0310) H 04/27/20 13:02 Neutrophils % 67.0 % (42-75.0) 04/27/20 13:02 Lymphocytes % 22.7 % (20-51) 04/27/20 13:02 Monocytes % 6.3 % (0.0-9) 04/27/20 13:02 Eosinophils % 2.8 % (0.0-3.0) 04/27/20 13:02 Basophils % 0.7 % (0.0-1.0) 04/27/20 13:02 Nucleated RBC % 0.0 k/mm3 (0-1) 04/27/20 13:02 Neutrophils # 6.4 K/mm3 (1.3-6.0) H 04/27/20 13:02 Lymphocytes # 2.16 k/mm3 (1.5-3.5) 04/27/20 13:02 Monocytes # 0.6 k/mm3 (0.0-1.0) 04/27/20 13:02 Eosinophils # 0.3 k/mm3 (0.0-0.7) 04/27/20 13:02 Absolute Basophils 0.1 k/mm3 (0.0-0.1) 04/27/20 13:02 Sodium 139 mmol/L (132-142) 04/27/20 13:02 Plasma Sodium 140 mmol/L (130-142) 04/27/20 13:02 Potassium 4.4 mmol/L (3.4-4.6) 04/27/20 13:02 Chloride 100 mmol/L (97-106) 04/27/20 13:02 Carbon Dioxide 37.1 mmol/L (24-32.6) H 04/27/20 13:02 Anion Gap 6.3 mmol/L (6.8-13.8) L 04/27/20 13:02 BUN 22 mg/dL (3-23) 04/27/20 13:02 Creatinine 0.77 mg/dL (0.4-1.4) 04/27/20 13:02 Est GFR (Non-Af Amer) 76 mL/min (60-130) 04/27/20 13:02 BUN/Creatinine Ratio 28.6 (9.0-21.6) H 04/27/20 13:02 Random Glucose 159 mg/dL (70-110) H 04/27/20 13:02 Calcium 9.4 mg/dL (7.9-10.9) 04/27/20 13:02 Calcium Adj for Albumin 9.9 mg/dL (8.4-10.2) 04/27/20 13:02 Total Bilirubin 0.2 mg/dL (0.0-1.1) 04/27/20 13:02 AST 23 U/L (0-48) 04/27/20 13:02 ALT 25 U/L (19-67) 04/27/20 13:02 Alkaline Phosphatase 134 U/L (50-170) 04/27/20 13:02 Troponin I 0.022 ng/mL (0.00-0.10) 04/27/20 13:02 Total Protein 7.9 gm/dL (6.2-8.2) 04/27/20 13:02 Albumin 3.0 gm/dl (3.4-5.0) L 04/27/20 13:02 Urine Color Yellow 04/27/20 13:54 Urine Appearance Clear (CLEAR) 04/27/20 13:54 Urine pH 6.0 pH (5.0-7.0) 04/27/20 13:54 Ur Specific [place] 1.020 SP.GR. (1.005-1.010) 04/27/20 13:54 Urine Protein Negative mg/dL (NEGATIVE) 04/27/20 13:54 Urine Glucose (UA) 100 mg/dL (NEGATIVE) H 04/27/20 13:54 Urine Ketones Negative mg/dL (NEGATIVE) 04/27/20 13:54 Urine Blood 5 /ul (NEGATIVE) H 04/27/20 13:54 Urine Nitrate Negative (NEGATIVE) 04/27/20 13:54 Urine Bilirubin Negative mg/dl (NEGATIVE) 04/27/20 13:54 Urine Urobilinogen Normal EU/dl (NORMAL) 04/27/20 13:54 Ur Leukocyte Esterase 25 /ul (NEGATIVE) H 04/27/20 13:54 Urine RBC Trace /hpf (0-5) 04/27/20 13:54 Urine WBC 25-50 /hpf (0-5) H 04/27/20 13:54 Ur Epithelial Cells None seen /hpf (0-5) 04/27/20 13:54 Urine Bacteria Trace (NONE) 04/27/20 13:54 Urine Yeast Few - 1+ (NONE) H 04/27/20 13:54 Urine Culture Comments Culture to follow 04/27/20 13:54 SARS-CoV-2 (PCR) Not detected (ND) 04/27/20 15:08 Assessment/Plan - Narrative Narrative: Patient was evaluated and medical chart was reviewed and decision to admit to [facility] for left femoral neck fracture secondary to fall was made. The orthope dic team has been consulted and will most likely take the patient to the OR for repair of her hip fracture tomorrow morning. In the meantime we will keep her comfortable, pain meds have been ordered and continue to watch her closely. All routine meds including her inhalers have been reconciled to be administered during the hospitalization. Hemoglobin is adequate and there were no other concerning finding on labs, so the patient was cleared for her procedure in the morning. - Assessment/Plan (1) Fall Problem: Acute Qualifiers: Encounter type: initial encounter Qualified Code(s): W19.XXXA - Unspecified fall, initial encounter (2) Falls frequently Problem: Chronic (3) Osteoporosis Problem: Chronic (4) Fracture of left hip Problem: Acute (5) COPD (chronic obstructive pulmonary disease) Problem: Chronic
[2020-04-27] MEDS: BUDESONIDE 0.5 MG/2 ML VIAL.NEB IH SCH (18:58)
[2020-04-27] MEDS: ALBUTEROL SULFATE/IPRATROPIUM 3 ML NEBU IH PRN (18:59)
[2020-04-27] MEDS: LACTOBACILLUS ACIDOPHILUS 1 EACH CAPSULE PO SCH (20:13)
[2020-04-27] MEDS: OXYBUTYNIN CHLORIDE 5 MG TABLET PO SCH (20:14)
[2020-04-27] MEDS ORDERED: PANTOPRAZOLE SODIUM 20 MG TABLET.DR PO SCH (21:00)
[2020-04-28] MEDS ORDERED: NORMAL SALINE 1,000 ML IV ONE (02:06)
[2020-04-28] MEDS: BUDESONIDE 0.5 MG/2 ML VIAL.NEB IH SCH ×2 (06:06→18:09)
[2020-04-28] MEDS: ALBUTEROL SULFATE/IPRATROPIUM 3 ML NEBU IH PRN (06:08)
[2020-04-28] MEDS: PANTOPRAZOLE SODIUM 40 MG TABLET.EC PO SCH (07:08)
[2020-04-28] MEDS: SERTRALINE HCL 50 MG TABLET PO SCH (08:29)
[2020-04-28] MEDS: POTASSIUM CHLORIDE 10 MEQ TABLET.SA PO SCH (08:29)
[2020-04-28] MEDS: LACTOBACILLUS ACIDOPHILUS 1 EACH CAPSULE PO SCH ×2 (08:29→21:00)
[2020-04-28] MEDS: CALCIUM CARBONATE/VITAMIN D3 1 TAB TABLET PO SCH ×3 (08:29→18:17)
[2020-04-28] MEDS: CYANOCOBALAMIN 1,000 MCG TABLET PO SCH (08:29)
[2020-04-28] MEDS: FLUDROCORTISONE ACETATE 0.1 MG TABLET PO SCH (08:29)
--- NOTE | 2020-04-28 08:36 | CONS ---
[facility] - General Date of Service: 04/28/20 Narrative: 84-year-old female presents from [facility] status post fall with left intertrochanteric femur fracture. Patient's pain appears well-controlled which she lays in bed significantly worse with movement. Family notes she has chronic history of COPD, she is not tolerated general anesthesia well. Patient otherwise has not on any significant blood thinners. She denies hitting her head or any other significant injuries. Patient otherwise has no acute complaints. Source: patient, family - History of Present Illness Allergies/Adverse Reactions: Allergies No Known Allergies Allergy (Verified 04/27/20 12:54) Home Medications: Home Medications Medication Instructions Recorded Last Taken aspirin 81 mg chewable tablet 81 mg PO DAILY 04/21/19 10/08/19 oxybutynin chloride 5 mg tablet 2.5 mg PO HS 04/21/19 10/08/19 potassium chloride 10 mEq 10 meq PO DAILY 04/21/19 10/08/19 tablet,extended release sertraline 100 mg tablet 75 mg PO DAILY 04/21/19 10/08/19 acetaminophen 500 mg tablet 2 tab PO Q6H PRN 06/08/19 Unknown budesonide 0.5 mg/2 mL suspension 0.5 mg IH BID #60 ml 06/08/19 10/08/19 for nebulization calcium carbonate 600 mg (1,500 1 tab PO TID cap 06/08/19 10/08/19 mg)-vitamin D3 500 unit capsule fludrocortisone 0.1 mg tablet 0.1 mg PO DAILY #28 tab 06/08/19 10/08/19 ipratropium 0.5 mg-albuterol 3 mg 3 ml IH Q6H PRN 06/08/19 10/08/19 (2.5 mg base)/3 mL nebulization soln albuterol sulfate 1.25 mg IH Q2H PRN 07/13/19 10/04/19 albuterol sulfate 90 mcg/actuation 2 puff IH Q4H PRN #85 g 07/13/19 10/08/19 aerosol inhaler Cyanocobalamin (Vitamin B-12) 500 mcg PO DAILY 10/08/19 10/08/19 [Vitamin B12] Lactobacillus Acidophilus 2 ea PO BID 11/19/19 Unknown [Acidophilus] Omeprazole 40 mg PO DAILY 02/04/20 Unknown Medications - Medications Current Medications: Current Medications Albuterol/Ipratropium (Duoneb 2.5-0.5mg/3ml Soln) 3 ml IH Q6H PRN PRN Reason: Shortness Of Breath Stop: 05/27/20 17:09 Last Admin: 04/28/20 06:08 Dose: 3 ml Documented by: Budesonide (Pulmicort Respules) 0.5 mg IH BIDRT [facility] Stop: 05/27/20 19:01 Last Admin: 04/28/20 06:06 Dose: 0.5 mg Documented by: Acetaminophen (Ofirm) 1,000 mg in 100 mls @ 400 mls/hr IV Q6H PRN PRN Reason: moderate to severe pain Stop: 05/27/20 14:22 Last Infusion: 04/28/20 00:03 Dose: Infused Documented by: Sodium Chloride (Sodium Chloride 0.9%) 1,000 mls @ 100 mls/hr IV .Q10H ONE Stop: 04/28/20 12:05 Last Admin: 04/28/20 02:09 Dose: 100 mls/hr Documented by: Lactobacillus Acidophilus (Bacid) 2 each PO BID MATTHEW Stop: 05/27/20 21:01 Last Admin: 04/27/20 20:13 Dose: 2 each Documented by: Oxybutynin Chloride (Ditropan) 2.5 mg PO HS [facility] Stop: 05/27/20 21:01 Last Admin: 04/27/20 20:14 Dose: 2.5 mg Documented by: Pantoprazole Sodium (Protonix) 40 mg PO DAILY@0700 [facility] Stop: 05/28/20 07:01 Last Admin: 04/28/20 07:08 Dose: Not Given Documented by: Physical Examination - Exam Vital Signs: Vital Signs - Last Taken Temp 36.3 C 04/28/20 06:46 Pulse 79 04/28/20 06:46 Resp 18 04/28/20 06:46 BP 136/67 04/28/20 06:46 Pulse Ox 95 04/28/20 06:46 O2 Oxygen Delivery Method Nasal Cannula Constitutional: Present: Alert - Oriented to self, Cooperative, No distress Eye Exam: bilateral eye: normal inspection Respiratory: Present: no respiratory distress Extremity: Present: other - LLE--> no obvious wounds or deformity, diffuse tenderness about left hip, 5/5 plantar flexion dorsiflexion ankle, sensation intact light touch, capillary refill brisk Skin Exam: Present: normal color, warm/dry Eye contact: Present: good eye contact - Results and Findings: Lab/Microbiology results last 24 hrs: Abnormal/Pending Laboratory Last 24 HRS 04/27/20 04/27/20 04/27/20 13:54 13:02 13:02 MCHC 29.9 L Immature Gran % (Auto) 0.50 H Immature Gran # (Auto) 0.05 H Neutrophils # 6.4 H Carbon Dioxide 37.1 H Anion Gap 6.3 L BUN/Creatinine Ratio 28.6 H Random Glucose 159 H Albumin 3.0 L Urine Glucose (UA) 100 H Urine Blood 5 H Ur Leukocyte Esterase 25 H Urine WBC 25-50 H Urine Yeast Few - 1+ H Culture 04/27/20 13:54 Urine Culture - Preliminary Urine,Clean Catch Gram Negative Bacilli - Assessments/Findings (1) Intertrochanteric fracture of left femur Problem: Acute Qualifiers: Encounter type: initial encounter Fracture type: closed Fracture alignment: displaced Qualified Code(s): S72.142A - Displaced intertrochanteric fracture of left femur, initial encounter for closed fracture Plan - Plan Plan: -84 y/o female presents to the ED with a left intertrochanteric femur fracture. Patient has no other acute complaints. Note she is alert to self. She wishes to proceed with surgical intervention discussed risk first benefits in detail including but not limited to cardiac and stroke risk, infection, continued pain, risk of complications including pneumonia, DVTs. Discussed with patient further care including weightbearing status as well as aftercare with a stay in the hospital. Called patient's JAQUELINE Shetty her [id number] and discussed the risk versus benefits of surgery. This was witnessed by nursing on staff. She confirmed that they wish to proceed with surgical intervention and agreed and expressed understanding to the same risks. Discussed patient's overall care as well as her overall health concerns. Would recommend attempting a spinal anesthetic and avoiding general anesthesia however with any surgical intervention there is a small risk of requiring general anesthetic. She expressed understanding and does note the patient previously has had significant complications. Will discuss this with the anesthesia providers prior to surgical intervention. However family understood risk with patient's overall health condition and the risk involved with surgery. Plan to proceed with surgical intervention of left intertrochanteric cephalo-medullary nailing on 04/28/2020. Patient will remain in the hospital postoperatively. Medicine has evaluated patient's overall risk as well as confirm an EKG.
--- NOTE | 2020-04-28 09:23 | PN ---
Subjective - Date and Time Seen Date: 04/28/20 Time: 09:11 Subjective Narrative: I have left hip pain Objective Objective Narrative: 84-year-old female admitted for left hip fracture secondary to a fall that she sustained yesterday had a [facility] when she attempted to rise out of her wheelchair. Patient had an uneventful night after she was cleared for her surgical repair by the orthopedic surgeon which is to be carried out this morning. Orthopedics contacted her POA who was informed of the risk and benefits of the procedure and they agreed to proceed to repair the fracture. The patient's respiratory risk and past history of complication anesthesia was discussed, it was determined that given her history of COPD and dependency on supplemental oxygen her risk of a complication is indeed increased. The patient and her POA decided to proceed anyway. Recommendation for spinal anesthesia versus general anesthesia was made, however given her risk factors that still a possibility that she ends up with general anesthesia. We will continue to monitor closely on this. Of note the patient also did have a UTI on admission, urine culture this morning reports the growth of a gram-negative bacilli. She was started on IV antibiotics to cover this. - Review of Systems Generalized/Overall Review: Reports: No Symptoms Reported EENTM: Reports: No Symptoms Reported Respiratory: Reports: No Symptoms Reported Cardiac: Reports: No Symptoms Reported Abdominal: Reports: No Symptoms Reported Genitourinary Symptoms: Reports: No Symptoms Reported Musculoskeletal Complaints: Reports: Joint Pain - Left hip pain Neurological: Reports: No Symptoms Reported Skin: Reports: No Symptoms Reported Endocrine: Reports: No Symptoms Reported - Vitals Vitals: Last Vital Signs Temp 36.3 C 04/28/20 06:46 Pulse 79 04/28/20 06:46 Resp 18 04/28/20 06:46 BP 136/67 04/28/20 06:46 Pulse Ox 95 04/28/20 06:46 - Abnormal Lab Findings Abnormal Lab Findings: Abnormal Lab Results 04/27/20 04/27/20 04/27/20 Range/Units 13:02 13:02 13:54 MCHC 29.9 L (32-36) g/dl Immature Gran % (Auto) 0.50 H (0.001-0.429) % Immature Gran # (Auto) 0.05 H (0.000-0.0310) K/mm3 Neutrophils # 6.4 H (1.3-6.0) K/mm3 Carbon Dioxide 37.1 H (24-32.6) mmol/L Anion Gap 6.3 L (6.8-13.8) mmol/L BUN/Creatinine Ratio 28.6 H (9.0-21.6) Random Glucose 159 H (70-110) mg/dL Albumin 3.0 L (3.4-5.0) gm/dl Urine Glucose (UA) 100 H (NEGATIVE) mg/dL Urine Blood 5 H (NEGATIVE) /ul Ur Leukocyte Esterase 25 H (NEGATIVE) /ul Urine WBC 25-50 H (0-5) /hpf Urine Yeast Few - 1+ H (NONE) - Exam Constitutional: Present: Alert, Oriented x3, Cooperative, Well developed, Well nourished, No distress, Elderly, Thin and frail ENT Exam: Present: normal ENT inspection, hearing grossly normal, pharynx normal, TMs normal Neck: Present: non-tender, full range of motion, supple, normal inspection, trachea midline Breasts: Present: Exam deferred Respiratory: Present: chest non-tender, no respiratory distress, no accessory muscle use, decreased breath sounds, rhonchi Cardiovascular/Chest: Present: normal peripheral pulses, regular rate, rhythm, no chest tenderness, no edema, no gallop, no JVD, no murmur Abdomen: Present: Normal bowel sounds, soft, nontender, nondistended, no rebound tenderness, no hepatospenomegaly, no masses /Rectal: Present: Exam deferred Extremity: Present: no pedal edema, no calf tenderness, leg pain, other - Left lower extremity externally rotated and shortened, tenderness of the left hip Skin Exam: Present: normal color, warm/dry, no cyanosis Lymphatic: Present: no adenopathy Neurologic: Present: 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 We also consulted the dietitian for evaluation given her history of protein calorie malnutrition, we will follow-up with any recommendations from the dietitian. Patient is scheduled to be taken to the OR for repair of her left hip fracture, we will reevaluate her after the procedure. - Problems/Diagnosis (1) Fall Problem: Acute Qualifiers: Encounter type: initial encounter Qualified Code(s): W19.XXXA - Unspecified fall, initial encounter (2) Falls frequently Problem: Chronic (3) Osteoporosis Problem: Chronic (4) Fracture of left hip Problem: Acute (5) COPD (chronic obstructive pulmonary disease) Problem: Chronic (6) UTI (urinary tract infection) Problem: Acute (7) Chronic respiratory failure with hypoxia Problem: Acute (8) Protein calorie malnutrition Problem: Acute
[2020-04-28] MEDS ORDERED: MORPHINE SULFATE 2 MG/ML DISP.SYRIN IV PRN (09:45)
[2020-04-28] MEDS ORDERED: ceFAZolin SODIUM 1 GM VIAL ONE (10:30)
--- NOTE | 2020-04-28 10:31 | ANES ---
Anesthesia Pre Procedure Eval Vitals/Labs: Last Vital Signs Temp 36.3 C 04/28/20 06:46 Pulse 79 04/28/20 06:46 Resp 18 04/28/20 06:46 BP 136/67 04/28/20 06:46 Pulse Ox 95 04/28/20 06:46 HOME MEDICATIONS aspirin 81 mg chewable tablet 81 mg PO DAILY 04/21/19 [Last Taken 10/08/19] oxybutynin chloride 5 mg tablet 2.5 mg PO HS 04/21/19 [Last Taken 10/08/19] potassium chloride 10 mEq tablet,extended release 10 meq PO DAILY 04/21/19 [Last Taken 10/08/19] sertraline 100 mg tablet 75 mg PO DAILY 04/21/19 [Last Taken 10/08/19] acetaminophen 500 mg tablet 2 tab PO Q6H PRN 06/08/19 [Last Taken Unknown] budesonide 0.5 mg/2 mL suspension for nebulization 0.5 mg IH BID #60 ml 06/08/19 [Last Taken 10/08/19] calcium carbonate 600 mg (1,500 mg)-vitamin D3 500 unit capsule 1 tab PO TID cap 06/08/19 [Last Taken 10/08/19] fludrocortisone 0.1 mg tablet 0.1 mg PO DAILY #28 tab 06/08/19 [Last Taken 0 10/08/19] ipratropium 0.5 mg-albuterol 3 mg (2.5 mg base)/3 mL nebulization soln 3 ml IH Q6H PRN 06/08/19 [Last Taken 10/08/19] albuterol sulfate 1.25 mg IH Q2H PRN 07/13/19 [Last Taken 10/04/19] albuterol sulfate 90 mcg/actuation aerosol inhaler 2 puff IH Q4H PRN #85 g 07/13/19 [Last Taken 10/08/19] Cyanocobalamin (Vitamin B-12) [Vitamin B12] 500 mcg PO DAILY 10/08/19 [Last Taken 10/08/19] Lactobacillus Acidophilus [Acidophilus] 2 ea PO BID 11/19/19 [Last Taken Unknown] Omeprazole 40 mg PO DAILY 02/04/20 [Last Taken Unknown] Allergies/Adverse Reactions: Allergies Allergy/AdvReac Type Severity Reaction Status Date / Time No Known Allergies Allergy Verified 04/27/20 12:54 - Planned Procedure Planned Procedure: lt intertrochanteric fx COPD CRF Medication List Reviewed:: Yes Allergies Verified: Yes Medical History (Last Reviewed 04/28/20 @ 10:26 by Judson Heath CRNA) Back pain (Chronic) Chronic respiratory failure (Chronic) Renal cell carcinoma (Chronic) Osteoarthritis (Chronic) Osteoporosis (Chronic) Type II diabetes mellitus (Chronic) HTN (hypertension) (Chronic) COPD (chronic obstructive pulmonary disease) (Chronic) Frequent falls Anemia Arthritis COPD (chronic obstructive pulmonary disease) Chronic respiratory failure Depression GERD (gastroesophageal reflux disease) Hypotension Osteoarthritis Osteoporosis PUD (peptic ulcer disease) Protein-energy malnutrition Renal cell carcinoma Type II diabetes mellitus Pleural effusion Surgical History (Last Reviewed 04/28/20 @ 10:26 by Judson Heath CRNA) H/O endoscopy Onset Date: ~04/22/13 History of appendectomy Onset Date: Unknown History of bronchoscopy Onset Date: ~04/28/18 History of cataract surgery Onset Date: ~09/01/02 History of colonoscopy Onset Date: ~06/2003 History of exploratory laparotomy Onset Date: ~12/23/122013 History of left knee replacement Onset Date: ~2002 History of nasal sinusotomy Onset Date: ~2007 History of nephrectomy Onset Date: ~08/25/95 Family History (Last Reviewed 04/28/20 @ 10:26 by Judson Heath CRNA) Brother Heart disease Mother Myocardial infarction Sister Cancer colon cancer - Family Anesthesia History Family History:: no untoward family reactions to anesthesia, no familial bleeding tendencies, no family history of clotting disorders, no family history of premature - Airway/Neck/Teeth Teeth Condition: none Denture Type: Full upper, Full lower Neck Exam: full range of motion Mallampatti Score: 2 Thyromental (T-M) distance: > 6 cm Mandibulo Hyoid distance: > 3 cm - Respiratory Respiratory History: COPD - O2 at home Respiratory Physical: lungs clear Smoking Status: Former smoker - quit 50 years ago Sleep Apnea currently treated: No Sleep Apnea by current assessment: No - Cardiovascular Cardiac History: hypertension Tolerate Activity: Poor - Gastrointestinal NPO since: 2399 - Anesthesia Assessment and Plan ASA Class: PS, III Anesthesia Type Plan: Spinal
[2020-04-28] MEDS ORDERED: MIDAZOLAM HCL/PF 1 MG/ML VIAL ONE (10:41)
[2020-04-28] MEDS ORDERED: PROPOFOL VIAL IV ONE (10:41)
[2020-04-28] MEDS ORDERED: BUPIVACAINE HCL/PF 10 ML VIAL ONE (10:43)
[2020-04-28] MEDS ORDERED: ONDANSETRON HCL/PF 2 MG/ML VIAL IV PRN (12:08)
[2020-04-28] MEDS ORDERED: MAG HYDROX/ALUMINUM HYD/SIMETH 30 ML UDC PO PRN (12:08)
[2020-04-28] MEDS ORDERED: MAGNESIUM HYDROXIDE 30 ML UDC PO PRN (12:08)
--- NOTE | 2020-04-28 12:08 | OR ---
Operative Report - Dictated Report Narrative: Date: 04/28/2020 Surgeon: Nikita Cui M.D. Granulator Machine Operator: Anjum Torres PA-C (provided an essential set of skilled educated handset assisted with transfer, positioning, prepping, draping, placement of instruments, insertion of implants, irrigation, closure wounds, and placement of dressings all which could not be performed by the available surgical crew) Preoperative diagnosis: Closed left intertrochanteric femur fracture Postoperative diagnosis: Closed left intertrochanteric femur fracture Operations and procedures: 1. Closed reduction, cephalo-medullary fixation left intertrochanteric femur fracture 2. Intraoperative interpretation of radiographs Anesthesia: Spinal Specimens: None Estimated blood loss: 50 milliliters Retained implants: [employer] Trigen InterTAN 130 degree size 11.5 mm by 18 centimeter nail with 100 millimeter lag screw and 95 millimeter compression screw, with distal locking screw Complications: None Indications for procedure: Mrs. Hayward is an 84-year-old female who injured the left leg after ground- level fall. They were admitted to the hospital after being evaluated in the emergency department. Once the medical provider felt that they were stable for surgical treatment, the risks and benefits alternatives were discussed. The risks of , blood clots, bleeding, infection, nerve/tendon/blood vessel injury, malunion, nonunion, failure of implants, painful implants, arthrosis, and need for additional procedures were discussed. The extremity was marked and consent was obtained on the floor. Procedure: After marking the operative extremity on the floor, the patient was taken to the operating room. A timeout was performed. IV antibiotics consisting of Ancef were administered. A spinal anesthetic was induced by anesthesia, and the patient was then placed onto a fracture table with a well-padded perineal post. The nonoperative leg was placed in a well-padded traction boot in slight extension without any traction with an SCD on the leg. The operative leg was placed in a well-padded traction boot. Longitudinal traction, internal rotation, and flexion were utilized in order to reduce the fracture. Preliminary images were attained utilizing C-arm in both the AP and lateral views. This confirmed that we had obtained adequate visualization of the fracture as well as reduction. Next the hip was then prepped and draped in a standard sterile fashion. Next the guidewire was placed percutaneously proximal to the greater trochanter to elizabeth a starting point at the tip of the greater trochanter centered on the lateral view. This was passed down to the level below the lesser trochanter. A scalpel was utilized in order to dissect down to the greater trochanter in order to place the soft tissue protector down to bone. The entry drill was then placed down the proximal femur to the level of the lesser trochanter. The proper size nail was then selected and impacted into place. The outrigger was utilized in order to confirm the appropriate depth of the nail. Using the alignment device on the outrigger, an incision was made over the lateral femur. Sharp dissection was carried through the iliotibial band down to the proximal femur. The guidewire was placed into the femoral head in a center- center position on AP and lateral views. The tip-apex distance of less than 25 mm combined was obtained. Once we felt that we had placed a guidewire in the appropriate position, it was measured. Next the compression screw site was drilled through the lateral femoral cortex. This was then drilled down to the appropriate depth, again confirming that we are within the confines the bone. The derotational bar was then placed and the lag screw was drilled. The lag screw was then secured in place seating fully ensuring that we were within the confines of the bone. The compression screw was then inserted allowing for compression while releasing the traction on the leg. Using C-arm this was visualized to allow for compression across the fracture site. Once is felt that we had adequately stabilized the intertrochanteric fracture, the distal interlocking screw was placed in a dynamic position. It was confirmed to be the appropriate length and within the nail on both AP and lateral views. The nail was secured allowing for controlled compression and the outrigger was removed. The wounds were then thoroughly irrigated. Final images were obtained. The hip was placed through range of motion and showed no crepitance. The deep fascia was closed with 0 Vicryl, the subcutaneous tissue with 3-0 Vicryl, and the skin was closed with layla. Sterile dressings of Xeroform, 4 x 4, and tape were applied. All sponge, sharp, and instrument counts were correct prior to closing the wounds. The patient was then awoken and transferred to the postanesthesia care unit in stable condition.
--- NOTE | 2020-04-28 12:26 | ANES ---
Post Anesthesia Discharge - Transfer of Care Transfer of Care handoff given to nurse: Yes - Discharge from PACU Discharge from PACU when meets criteria: Yes - Awake and comfortable.
--- NOTE | 2020-04-28 13:19 | ANES ---
Post Anesthesia Assessment - Vital Signs Vitals: Last Vital Signs Temp 36.2 C 04/28/20 12:40 Pulse 98 04/28/20 12:40 Resp 22 H 04/28/20 12:40 BP 109/52 04/28/20 12:40 Pulse Ox 91 L 04/28/20 12:40 Airway Patency: Normal - Mental Status Level Of Consciousness: Awake, Alert, Appropriate - Pain Level Pain Score: 0 - N/V Assessment Nausea/Vomiting Presence: None Dehydration:: No
[2020-04-28] MEDS: ceFAZolin SODIUM 1 GM in DEXTROSE 5 % IN WATER 100 ML IV SCH ×4 (14:10→20:58)
[2020-04-28] MEDS: RINGER'S SOLUTION,LACTATED 1,000 ML IV PRN (16:44)
[2020-04-28] MEDS: OXYBUTYNIN CHLORIDE 5 MG TABLET PO SCH (21:00)
[2020-04-28] MEDS: ACETAMINOPHEN 500 MG TABLET PO PRN (21:06)
[2020-04-28] MEDS: SENNOSIDES/DOCUSATE SODIUM 1 TAB TABLET PO SCH (21:12)
[2020-04-29] MEDS: RINGER'S SOLUTION,LACTATED 1,000 ML IV PRN (01:16)
[2020-04-29] MEDS: ceFAZolin SODIUM 1 GM in DEXTROSE 5 % IN WATER 100 ML IV SCH ×2 (02:02)
[2020-04-29] MEDS: BUDESONIDE 0.5 MG/2 ML VIAL.NEB IH SCH ×3 (06:00→17:05)
[2020-04-29] MEDS ORDERED: ceFAZolin SODIUM 1 GM VIAL IV PRN (06:00)
[2020-04-29] MEDS: ALBUTEROL SULFATE/IPRATROPIUM 3 ML NEBU IH PRN ×2 (06:02→17:01)
[2020-04-29] MEDS: HYDROcodone/ACETAMINOPHEN 1 EACH TABLET PO PRN ×4 (07:04→23:06)
[2020-04-29] MEDS: PANTOPRAZOLE SODIUM 40 MG TABLET.EC PO SCH (07:05)
[2020-04-29 07:59] LABS: Mean Cell Volume 90.7 fl (78-100); Mean Corpuscular Hemoglobin 27.7 pg (27-31); Mean Corpuscular Hgb Conc 30.6 g/dl (32-36); Platelet Count 195 K/mm3 (150-450); Red Blood Count 3.97 M/mm3 (4.2-5.4); Red Cell Distribution Width 13.8 % (11.5-14.0); White Blood Count 12.3 K/mm3 (4.0-10.5)
[2020-04-29 08:10] LABS: BUN/Creatinine Ratio 11.2 (9.0-21.6); Calcium * 9.2 mg/dL (7.9-10.9); Carbon Dioxide 29.6 mmol/L (24-32.6); Estimated Creat Clear 31.5; Potassium 3.6 mmol/L (3.4-4.6)
[2020-04-29] MEDS: MUPIROCIN 22 APPL TUBE TP SCH ×2 (09:14→20:34)
[2020-04-29] MEDS: CYANOCOBALAMIN 1,000 MCG TABLET PO SCH (09:14)
--- NOTE | 2020-04-29 09:14 | PN ---
Subjective - Date and Time Seen Date: 04/29/20 Time: 09:06 Subjective Narrative: I feel better, my pain is controlled Objective Objective Narrative: 84-year-old female status post close reduction with intramedullary na il fixation to repair a left femoral fracture postop day #1 was evaluated at bedside and was found to be afebrile and in no acute distress. Patient had her surgery yesterday which he tolerated without any issues. There were no adverse events reported and she is recuperating without any issues. The patient this morning denied any pain and appeared to be comfortable. Her left hip was covered by dry clean dressing and there were no signs of bleeding or infection. Of note the patient was found to be positive for MRSA in her nares so Bactroban was added to her treatment. We will keep the patient under contact isolation. - Review of Systems Generalized/Overall Review: Reports: No Symptoms Reported EENTM: Reports: No Symptoms Reported Respiratory: Reports: No Symptoms Reported Cardiac: Reports: No Symptoms Reported Abdominal: Reports: No Symptoms Reported Genitourinary Symptoms: Reports: No Symptoms Reported Musculoskeletal Complaints: Reports: Joint Pain Neurological: Reports: No Symptoms Reported Skin: Reports: No Symptoms Reported Endocrine: Reports: No Symptoms Reported - Vitals Vitals: Last Vital Signs Temp 36.9 C 04/29/20 07:22 Pulse 108 H 04/29/20 07:22 Resp 14 04/29/20 07:22 BP 97/72 04/29/20 07:22 Pulse Ox 94 04/29/20 07:22 - Abnormal Lab Findings Abnormal Lab Findings: Abnormal Lab Results 04/29/20 04/29/20 Range/Units 06:30 07:30 WBC 12.3 H D (4.0-10.5) K/mm3 RBC 3.97 L (4.2-5.4) M/mm3 Hgb 11.0 L (12.5-16.0) gm/dL Hct 36.0 L (37.0-47.0) % MCHC 30.6 L (32-36) g/dl Random Glucose 172 H (70-110) mg/dL - Exam Constitutional: Present: Alert, Oriented x3, Cooperative, Well developed, Well nourished, No distress, Elderly, Thin and frail ENT Exam: Present: normal ENT inspection, pharynx normal, TMs normal, hard of hearing Neck: Present: non-tender, full range of motion, supple, normal inspection, trachea midline Breasts: Present: Exam deferred, Nontender Respiratory: Present: chest non-tender, lungs clear, normal breath sounds, no respiratory distress, no accessory muscle use Cardiovascular/Chest: Present: normal peripheral pulses, regular rate, rhythm, no chest tenderness, no edema, no gallop, no JVD, no murmur Abdomen: Present: Normal bowel sounds, soft, nontender, nondistended, no rebound tenderness, no hepatospenomegaly, no masses /Rectal: Present: Exam deferred Extremity: Present: no pedal edema, no calf tenderness, normal capillary refill, calf tenderness, other - Left hip covered by dry clean dressing Skin Exam: Present: normal color, warm/dry, no cyanosis Lymphatic: Present: no adenopathy Neurologic: Present: 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, normal cerebellar test, no motor/sensory deficits, alert, normal mood/affect, oriented x 3 Appearance: Present: appropriate appearance, appropriate insight, neat, no memory impairment Eye contact: Present: cooperative, good eye contact, normal speech Thoughts: Present: normal thought pattern, no apparent hallucination Cauti Physician Documentation - Urinary Catheter Management Urethral (Del Angel) Urethral Indwelling: Yes Date of Insertion: 04/27/20 Time of Insertion: 17:37 Assessment/Plan Plan Narrative: Patient's pain is adequately controlled at the moment, her hemoglobin only decreased slightly due to the surgery. We will continue to monitor with labs in the morning. Bactroban will be administered to her nares twice a day to treat MRSA, and we will continue to administer antibiotics to treat her UTI. - Problems/Diagnosis (1) Fall Problem: Acute Qualifiers: Encounter type: initial encounter Qualified Code(s): W19.XXXA - Unspecified fall, initial encounter (2) Falls frequently Problem: Chronic (3) Osteoporosis Problem: Chronic (4) Fracture of left hip Problem: Acute (5) COPD (chronic obstructive pulmonary disease) Problem: Chronic Qualifiers: COPD type: chronic bronchitis Chronic bronchitis type: unspecified Qualified Code(s): J42 - Unspecified chronic bronchitis (6) UTI (urinary tract infection) Problem: Acute (7) Chronic respiratory failure with hypoxia Problem: Acute (8) Protein calorie malnutrition Problem: Acute (9) MRSA nasal colonization Problem: Acute (10) Status post-operative repair of closed fracture of left hip Problem: Acute (11) Postoperative anemia due to acute blood loss Problem: Acute
[2020-04-29] MEDS: CALCIUM CARBONATE/VITAMIN D3 1 TAB TABLET PO SCH ×3 (09:15→17:04)
[2020-04-29] MEDS: LACTOBACILLUS ACIDOPHILUS 1 EACH CAPSULE PO SCH ×2 (09:15→20:33)
[2020-04-29] MEDS: SERTRALINE HCL 50 MG TABLET PO SCH (09:16)
[2020-04-29] MEDS: FLUDROCORTISONE ACETATE 0.1 MG TABLET PO SCH (09:16)
[2020-04-29] MEDS: POTASSIUM CHLORIDE 10 MEQ TABLET.SA PO SCH (09:17)
[2020-04-29] MEDS: RIVAROXABAN 20 MG TABLET PO SCH (09:17)
[2020-04-29] MEDS: SENNOSIDES/DOCUSATE SODIUM 1 TAB TABLET PO SCH (20:33)
[2020-04-29] MEDS: OXYBUTYNIN CHLORIDE 5 MG TABLET PO SCH (20:34)
[2020-04-30] MEDS: BUDESONIDE 0.5 MG/2 ML VIAL.NEB IH SCH ×2 (06:02→17:05)
[2020-04-30] MEDS: ALBUTEROL SULFATE/IPRATROPIUM 3 ML NEBU IH PRN ×2 (06:03→17:08)
[2020-04-30 06:49] LABS: Hematocrit 32.9 % (37.0-47.0); Hemoglobin 10.2 gm/dL (12.5-16.0); Mean Cell Volume 89.4 fl (78-100); Mean Corpuscular Hemoglobin 27.7 pg (27-31); Mean Platelet Volume 12.2 fl (8-12.5); Neutrophil # 7.1 K/mm3 (1.3-6.0); Platelet Count 198 K/mm3 (150-450); Red Blood Count 3.68 M/mm3 (4.2-5.4); Red Cell Distribution Width 13.9 % (11.5-14.0); White Blood Count 10.6 K/mm3 (4.0-10.5)
[2020-04-30] MEDS: PANTOPRAZOLE SODIUM 40 MG TABLET.EC PO SCH (07:27)
[2020-04-30] MEDS: POTASSIUM CHLORIDE 10 MEQ TABLET.SA PO SCH (09:19)
[2020-04-30] MEDS: LACTOBACILLUS ACIDOPHILUS 1 EACH CAPSULE PO SCH ×2 (09:19→21:07)
[2020-04-30] MEDS: FLUDROCORTISONE ACETATE 0.1 MG TABLET PO SCH (09:19)
[2020-04-30] MEDS: CALCIUM CARBONATE/VITAMIN D3 1 TAB TABLET PO SCH ×3 (09:19→17:01)
[2020-04-30] MEDS: SERTRALINE HCL 50 MG TABLET PO SCH (09:19)
[2020-04-30] MEDS: MUPIROCIN 22 APPL TUBE TP SCH ×2 (09:19→21:06)
[2020-04-30] MEDS: RIVAROXABAN 20 MG TABLET PO SCH (09:20)
[2020-04-30] MEDS: CYANOCOBALAMIN 1,000 MCG TABLET PO SCH (09:20)
[2020-04-30] MEDS: HYDROcodone/ACETAMINOPHEN 1 EACH TABLET PO PRN (09:20)
--- NOTE | 2020-04-30 14:05 | PN ---
Subjective - Date and Time Seen Date: 04/30/20 Time: 14:02 Subjective Narrative: Subjective: Reports no concerns. Was able to get up to a chair with therapy. Pain is well-controlled. Tolerating by mouth intake. Denies any nausea or vomiting. Physical exam: Alert Left lower extremity: Palpable dorsalis pedis pulse. Sensation grossly intact to light touch. Dressings clean and dry. Able to flex and extend ankle and toes. No excessive drainage. Calf and thigh are soft and nontender. Assessment: Postop day 2 status post left hip intramedullary fixation Plan: Continue with physical and occupational therapy weightbearing as tolerated. Continue with anticoagulation-we will need 6 weeks of DVT prophylaxis. Pain control with goal to rely on oral medications. Continue bowel regimen. Will need 6 weeks with walker or assitive device to protect joint while ambulating during the recovery process. Discharge planning - From an orthopedic standpoint she is okay to transfer when medically sound. She will be weightbearing as tolerated range of motion as tolerated. Keep the wound clean and dry and cover with dry gauze. Follow-up in orthopedics in 2 to 3 weeks. Use stocking on operative leg. Keep wound dry. Objective - Vitals Vitals: Last Vital Signs Temp 37.1 C 04/30/20 11:00 Pulse 106 H 04/30/20 11:00 Resp 19 04/30/20 11:00 BP 88/56 L 04/30/20 11:00 Pulse Ox 97 04/30/20 11:00 - Abnormal Lab Findings Abnormal Lab Findings: Abnormal Lab Results 04/30/20 Range/Units 06:40 WBC 10.6 H (4.0-10.5) K/mm3 RBC 3.68 L (4.2-5.4) M/mm3 Hgb 10.2 L (12.5-16.0) gm/dL Hct 32.9 L (37.0-47.0) % MCHC 31.0 L (32-36) g/dl Lymphocytes % 18.6 L (20-51) % Eosinophils % 4.8 H (0.0-3.0) % Neutrophils # 7.1 H (1.3-6.0) K/mm3 Cauti Physician Documentation - Urinary Catheter Management Urethral (Del Angel) Urethral Indwelling: Yes Date of Insertion: 04/27/20 Time of Insertion: 17:37 Assessment/Plan - Problems/Diagnosis (1) Intertrochanteric fracture of left femur Problem: Acute Qualifiers: Encounter type: subsequent encounter Fracture type: closed Fracture alignment: displaced Fracture healing: with routine healing Qualified Code(s): S72.142D - Displaced intertrochanteric fracture of left femur, subsequent encounter for closed fracture with routine healing
[2020-04-30] MEDS: SENNOSIDES/DOCUSATE SODIUM 1 TAB TABLET PO SCH (21:06)
[2020-04-30] MEDS: OXYBUTYNIN CHLORIDE 5 MG TABLET PO SCH (21:07)
--- NOTE | 2020-04-30 23:53 | PN ---
Subjective - Date and Time Seen Date: 04/30/20 Time: 12:00 Subjective Narrative: Pain controlled. No nausea, vomiting, fever, or chills. Objective - Vitals Vitals: Last Vital Signs Temp 36.7 C 04/30/20 21:42 Pulse 101 H 04/30/20 21:42 Resp 22 H 04/30/20 21:42 BP 105/65 04/30/20 21:42 Pulse Ox 91 L 04/30/20 21:42 - Abnormal Lab Findings Abnormal Lab Findings: Abnormal Lab Results 04/30/20 Range/Units 06:40 WBC 10.6 H (4.0-10.5) K/mm3 RBC 3.68 L (4.2-5.4) M/mm3 Hgb 10.2 L (12.5-16.0) gm/dL Hct 32.9 L (37.0-47.0) % MCHC 31.0 L (32-36) g/dl Lymphocytes % 18.6 L (20-51) % Eosinophils % 4.8 H (0.0-3.0) % Neutrophils # 7.1 H (1.3-6.0) K/mm3 - Exam Constitutional: Present: Alert, No distress Respiratory: Present: lungs clear, normal breath sounds Cardiovascular/Chest: Present: regular rate, rhythm, no edema Abdomen: Present: Normal bowel sounds, soft, nontender Cauti Physician Documentation - Urinary Catheter Management Urethral (Del Angel) Urethral Indwelling: Yes Date of Insertion: 04/27/20 Time of Insertion: 17:37 Assessment/Plan Plan Narrative: El reports doing well today. She has completed 3 days of rocephin for UTI, will discontinue. Pain is controlled. Needing SNF for strengthening. - Problems/Diagnosis (1) Intertrochanteric fracture of left femur Problem: Acute Qualifiers: Encounter type: subsequent encounter Fracture type: closed Fracture alignment: displaced Fracture healing: with routine healing Qualified Code(s): S72.142D - Displaced intertrochanteric fracture of left femur, subsequent encounter for closed fracture with routine healing (2) Protein calorie malnutrition Problem: Acute (3) UTI (urinary tract infection) Problem: Acute
[2020-05-01] MEDS: BUDESONIDE 0.5 MG/2 ML VIAL.NEB IH SCH ×2 (06:00→17:00)
[2020-05-01] MEDS: ALBUTEROL SULFATE/IPRATROPIUM 3 ML NEBU IH PRN ×2 (06:00→17:00)
[2020-05-01] MEDS: PANTOPRAZOLE SODIUM 40 MG TABLET.EC PO SCH (07:30)
[2020-05-01] MEDS: ACETAMINOPHEN 500 MG TABLET PO PRN ×2 (09:38→21:21)
[2020-05-01] MEDS: POTASSIUM CHLORIDE 10 MEQ TABLET.SA PO SCH (09:39)
[2020-05-01] MEDS: FLUDROCORTISONE ACETATE 0.1 MG TABLET PO SCH (09:39)
[2020-05-01] MEDS: MUPIROCIN 22 APPL TUBE TP SCH ×2 (09:39→21:20)
[2020-05-01] MEDS: SERTRALINE HCL 50 MG TABLET PO SCH (09:39)
[2020-05-01] MEDS: LACTOBACILLUS ACIDOPHILUS 1 EACH CAPSULE PO SCH ×2 (09:39→21:20)
[2020-05-01] MEDS: RIVAROXABAN 20 MG TABLET PO SCH (09:39)
[2020-05-01] MEDS: CALCIUM CARBONATE/VITAMIN D3 1 TAB TABLET PO SCH ×3 (09:39→16:54)
[2020-05-01] MEDS: CYANOCOBALAMIN 1,000 MCG TABLET PO SCH (09:40)
--- NOTE | 2020-05-01 10:27 | PN ---
Subjective - Date and Time Seen Date: 05/01/20 Time: 10:02 Subjective Narrative: Her pain seems to be controlled. She's not often asking for anything. She reports having some soreness deep in the hip joint today. Objective - Review of Systems Generalized/Overall Review: Denies: Fever Respiratory: Reports: Shortness of Breath - at baseline Cardiac: Denies: Chest Pain, Edema Abdominal: Denies: Vomiting Genitourinary Symptoms: Reports: No Symptoms Reported Musculoskeletal Complaints: Reports: Joint Pain - left hip Neurological: Reports: No Symptoms Reported - Vitals Vitals: Last Vital Signs Temp 37.4 C 05/01/20 06:00 Pulse 99 05/01/20 06:10 Resp 20 05/01/20 06:10 BP 103/65 05/01/20 06:00 Pulse Ox 97 05/01/20 06:00 - Exam Constitutional: Present: Alert - wakens easily for exam, Cooperative, Elderly, Thin and frail ENT Exam: Present: dry mucous membranes Respiratory: Present: no accessory muscle use, rhonchi, other - on 2 L O2 (she reports using oxygen at baseline) Cardiovascular/Chest: Present: regular rate, rhythm Abdomen: Present: soft, nontender Extremity: Present: other - SCDs in place. Absent: lower extremity edema Skin Exam: Present: other - bandage in place over left hip incision Eye contact: Present: cooperative Cauti Physician Documentation - Urinary Catheter Management Urethral (Del Angel) Urethral Indwelling: Yes Date of Insertion: 04/27/20 Time of Insertion: 17:37 Assessment/Plan - Problems/Diagnosis (1) Intertrochanteric fracture of left femur Problem: Acute Qualifiers: Encounter type: subsequent encounter Fracture type: closed Fracture alignment: displaced Fracture healing: with routine healing Qualified Code(s): S72.142D - Displaced intertrochanteric fracture of left femur, subsequent encounter for closed fracture with routine healing Narrative: She is post op day #3 closed reduction, cephalo-medullary fixation left intertrochanteric femur fracture. she is using minimal pain medication. continue PT. She should be able to go back to her nursing facility tomorrow. (2) COPD (chronic obstructive pulmonary disease) Problem: Chronic Qualifiers: COPD type: chronic bronchitis Chronic bronchitis type: unspecified Qualified Code(s): J42 - Unspecified chronic bronchitis Narrative: She uses 2 L O2 via NC at baseline. Negative COVID on admission. She does not appear to be in any respiratory distress, but does have some rhonchi, and with her prescribed respiratory meds, I anticipate this may be her baseline. (3) UTI (urinary tract infection) Problem: Resolved Narrative: UA on admission was positive for blood and leukocyte esterase and she was started on Rocephin. Subsequent urine culture only grew 20-30,000 CFU's Proteus mirabilis, which is not usually high enough CFU count to cause an infection. She was unable to tell me if she was symptomatic at the time to help with infection diagnosis. She received 3 days of Rocephin, completing treatment. (4) Chronic respiratory failure Problem: Chronic Qualifiers: Respiratory failure complication: hypoxia Qualified Code(s): J96.11 - Chronic respiratory failure with hypoxia (5) GERD (gastroesophageal reflux disease) Problem: Chronic Qualifiers: Esophagitis presence: without esophagitis Qualified Code(s): K21.9 - Gastro-esophageal reflux disease without esophagitis (6) Renal cell carcinoma Problem: Chronic Qualifiers: Laterality: unspecified laterality Qualified Code(s): C64.9 - Malignant neoplasm of unspecified kidney, except renal pelvis (7) Type II diabetes mellitus Problem: Chronic Qualifiers: Diabetes mellitus care home insulin use: without intermediate accountant use Diabetes mellitus complication status: without complication Qualified Code(s): E11.9 - Type 2 diabetes mellitus without complications Narrative: Glucose has been greater than 150 for most of her stay. Humalog added for SSI. (8) HTN (hypertension) Problem: Chronic Qualifiers: Hypertension type: essential hypertension Qualified Code(s): I10 - Essential (primary) hypertension Narrative: HTN is listed in her problem list, but she is not currently prescribed antihypertensives, and BP is a bit low, around 106/65 most recently. (9) Polypharmacy Problem: Chronic Narrative: Chart review done to find the diagnosis for her fludrocortisone and xarelto prescriptions, but unable to find more info. Suspect xarelto may be post-op DVT prophylaxis. (10) Osteoporosis Problem: Chronic Qualifiers:
[2020-05-01] MEDS: INSULIN LISPRO 100 UNITS/ML VIAL SC SCH ×3 (11:54→21:30)
[2020-05-01] MEDS: SENNOSIDES/DOCUSATE SODIUM 1 TAB TABLET PO SCH (21:21)
[2020-05-01] MEDS: OXYBUTYNIN CHLORIDE 5 MG TABLET PO SCH (21:21)
[2020-05-02] MEDS: BUDESONIDE 0.5 MG/2 ML VIAL.NEB IH SCH (06:08)
[2020-05-02] MEDS: INSULIN LISPRO 100 UNITS/ML VIAL SC SCH (06:53)
[2020-05-02] MEDS: PANTOPRAZOLE SODIUM 40 MG TABLET.EC PO SCH (07:22)
[2020-05-02] MEDS: ACETAMINOPHEN 500 MG TABLET PO PRN (07:22)
[2020-05-02] MEDS: LACTOBACILLUS ACIDOPHILUS 1 EACH CAPSULE PO SCH (07:59)
[2020-05-02] MEDS: FLUDROCORTISONE ACETATE 0.1 MG TABLET PO SCH (07:59)
[2020-05-02] MEDS: CYANOCOBALAMIN 1,000 MCG TABLET PO SCH (08:00)
[2020-05-02] MEDS: RIVAROXABAN 20 MG TABLET PO SCH (08:00)
[2020-05-02] MEDS: CALCIUM CARBONATE/VITAMIN D3 1 TAB TABLET PO SCH (08:00)
[2020-05-02] MEDS: SERTRALINE HCL 50 MG TABLET PO SCH (08:00)
[2020-05-02] MEDS: POTASSIUM CHLORIDE 10 MEQ TABLET.SA PO SCH (08:00)
[2020-05-02] MEDS: MUPIROCIN 22 APPL TUBE TP SCH (08:00)
--- NOTE | 2020-05-02 09:21 | DS ---
(1) Fall Problem: Acute Qualifiers: Encounter type: initial encounter Qualified Code(s): W19.XXXA - Unspecified fall, initial encounter (2) Falls frequently Problem: Chronic (3) Osteoporosis Problem: Chronic (4) Fracture of left hip Problem: Acute (5) COPD (chronic obstructive pulmonary disease) Problem: Chronic Qualifiers: COPD type: chronic bronchitis Chronic bronchitis type: unspecified Qualified Code(s): J42 - Unspecified chronic bronchitis (6) UTI (urinary tract infection) Problem: Resolved (7) Chronic respiratory failure with hypoxia Problem: Acute (8) Protein calorie malnutrition Problem: Acute (9) MRSA nasal colonization Problem: Acute (10) Status post-operative repair of closed fracture of left hip Problem: Acute (11) Postoperative anemia due to acute blood loss Problem: Acute Date of Discharge:: 05/02/20 Hospital Course: 84-year-old female admitted for a left hip fracture subsequent to a fall that occurred at the [facility] while the patient attempted to get out of her wheelchair. Patient underwent a successful repair of her fracture and started physical therapy as well as occupational therapy while here at our institution. Ortho has started her on oral anticoagulants which is to be continued per their recommendation for 6 weeks. We will discharge patient with a prescription for the medication as well as additional days of oral pain medications. Patient is to follow-up with Ortho as well as her PCP within the next week or so. Procedures Performed: see notes below List Procedures: Status post internal intramedullary fixation of left femur. Care Plan Goals: Patient is to continue PT, OT, ST and anticoagulation for 6 weeks. Results and Findings: Lab Pending Results 04/27/20 13:02: WBC 9.5, RBC 4.75, Hgb 13.0, Hct 43.5, MCV 91.6, MCH 27.4, MCHC 29.9 L, RDW 14.0, Plt Count 286, MPV 11.3, Immature Gran % (Auto) 0.50 H, Immature Gran # (Auto) 0.05 H, Neutrophils % 67.0, Lymphocytes % 22.7, Monocytes % 6.3, Eosinophils % 2.8, Basophils % 0.7, Nucleated RBC % 0.0, Neutrophils # 6.4 H, Lymphocytes # 2.16, Monocytes # 0.6, Eosinophils # 0.3, Absolute Basophils 0.1 04/27/20 13:02: Sodium 139, Plasma Sodium 140, Potassium 4.4, Chloride 100, Carbon Dioxide 37.1 H, Anion Gap 6.3 L, BUN 22, Creatinine 0.77, Est GFR (Non-Af Amer) 76, BUN/Creatinine Ratio 28.6 H, Random Glucose 159 H, Calcium 9.4, Calcium Adj for Albumin 9.9, Total Bilirubin 0.2, AST 23, ALT 25, Alkaline Phosphatase 134, Troponin I 0.022, Total Protein 7.9, Albumin 3.0 L 04/27/20 13:54: Urine Color Yellow, Urine Appearance Clear, Urine pH 6.0, Ur Specific Arley 1.020, Urine Protein Negative, Urine Glucose (UA) 100 H, Urine Ketones Negative, Urine Blood 5 H, Urine Nitrate Negative, Urine Bilirubin Negative, Urine Urobilinogen Normal, Ur Leukocyte Esterase 25 H, Urine RBC Trace, Urine WBC 25-50 H, Ur Epithelial Cells None seen, Urine Bacteria Trace, Urine Yeast Few - 1+ H, Urine Culture Comments Culture to follow 04/27/20 15:08: SARS-CoV-2 (PCR) Not detected 04/29/20 06:30: WBC 12.3 H D, RBC 3.97 L, Hgb 11.0 L, Hct 36.0 L, MCV 90.7, MCH 27.7, MCHC 30.6 L, RDW 13.8, Plt Count 195, MPV 12.0 04/29/20 07:30: Sodium 133, Plasma Sodium 134, Potassium 3.6, Chloride 98, Carbon Dioxide 29.6, Anion Gap 9.0, BUN 10 D, Creatinine 0.89, Est GFR (Non-Af Amer) 65, BUN/Creatinine Ratio 11.2, Random Glucose 172 H, Calcium 9.2 04/30/20 06:40: WBC 10.6 H, RBC 3.68 L, Hgb 10.2 L, Hct 32.9 L, MCV 89.4, MCH 27.7, MCHC 31.0 L, RDW 13.9, Plt Count 198, MPV 12.2, Immature Gran % (Auto) 0.30, Immature Gran # (Auto) 0.03, Neutrophils % 67.0, Lymphocytes % 18.6 L, Monocytes % 9.0, Eosinophils % 4.8 H, Basophils % 0.3, Nucleated RBC % 0.0, Neutrophils # 7.1 H, Lymphocytes # 1.97, Monocytes # 1.0, Eosinophils # 0.5, Absolute Basophils 0.0 Discharge Location: [facility] Disposition: [facility] Condition: Stable Face to Face Encounter completed per [facility] Guidelines: No Level of Care: SNF Discharge Activity: Weight bearing Discharge Diet: General/regular food Detention Therapy: Physical Therapy, Occupation Therapy, Speech Therapy Prescriptions (Any new or edited meds): Mupirocin [Bactroban] 1 appl TOPICAL BID 2 Days #1 tube Transmission Status: Pending to [facility] Rivaroxaban [Xarelto] 20 mg PO DAILY #41 tab Transmission Status: Pending to [facility] Complete Home Medications List: Complete Home Medication List: aspirin 81 mg chewable tablet 81 mg PO DAILY 04/21/19 oxybutynin chloride 5 mg tablet 2.5 mg PO HS 04/21/19 potassium chloride 10 mEq tablet,extended release 10 meq PO DAILY 04/21/19 sertraline 100 mg tablet 75 mg PO DAILY 04/21/19 acetaminophen 500 mg tablet 2 tab PO Q6H PRN 06/08/19 budesonide 0.5 mg/2 mL suspension for nebulization 0.5 mg IH BID #60 ml 06/08/19 calcium carbonate 600 mg (1,500 mg)-vitamin D3 500 unit capsule 1 tab PO TID cap 06/08/19 fludrocortisone 0.1 mg tablet 0.1 mg PO DAILY #28 tab 06/08/19 ipratropium 0.5 mg-albuterol 3 mg (2.5 mg base)/3 mL nebulization soln 3 ml IH Q6H PRN 06/08/19 albuterol sulfate 1.25 mg IH Q2H PRN 07/13/19 albuterol sulfate 90 mcg/actuation aerosol inhaler 2 puff IH Q4H PRN #85 g 07/13/19 Cyanocobalamin (Vitamin B-12) [Vitamin B12] 500 mcg PO DAILY 10/08/19 Lactobacillus Acidophilus [Acidophilus] 2 ea PO BID 11/19/19 Omeprazole 40 mg PO DAILY 02/04/20 Mupirocin [Bactroban] 1 appl TOPICAL BID 2 Days #1 tube 05/02/20 Rivaroxaban [Xarelto] 20 mg PO DAILY #41 tab 05/02/20
[2020-05-02] MEDS: HYDROcodone/ACETAMINOPHEN 1 EACH TABLET PO PRN (10:20)
[2020-05-02 12:32] VITALS: BP 122/78
== END 2020-05-02 11:30 | DRG 480 ==
LOC: ER 12:40 → MS 14:22
PROVIDERS: ADMIT Family Medicine; ATTEND Family Medicine
DX: Z99.81 Dependence on supplemental oxygen; M81.0 Age-related osteoporosis without current pathological fracture; D62 Acute posthemorrhagic anemia; Z68.21 Body mass index [BMI] 21.0-21.9, adult; B96.4 Proteus (mirabilis) (morganii) as the cause of diseases classified elsewhere; Z22.322 Carrier or suspected carrier of Methicillin resistant Staphylococcus aureus; J42 Unspecified chronic bronchitis; K21.9 Gastro-esophageal reflux disease without esophagitis; I10 Essential (primary) hypertension; E11.9 Type 2 diabetes mellitus without complications; J96.11 Chronic respiratory failure with hypoxia; E43 Unspecified severe protein-calorie malnutrition; Z11.59 Encounter for screening for other viral diseases; N39.0 Urinary tract infection, site not specified; S72.142A Displaced intertrochanteric fracture of left femur, initial encounter for closed fracture; R29.6 Repeated falls; C64.9 Malignant neoplasm of unspecified kidney, except renal pelvis

== ENCOUNTER 2020-12-28 17:10 | Inpatient (IN) ==
[2020-12-28 18:31] LABS: Hematocrit 38.2 % (37.0-47.0); Hemoglobin 11.4 gm/dL (12.5-16.0); Mean Corpuscular Hgb Conc 29.8 g/dl (32-36); Mean Platelet Volume 11.5 fl (8-12.5); Platelet Count 304 K/mm3 (150-450); Red Blood Count 4.39 M/mm3 (4.2-5.4); Red Cell Distribution Width 16.8 % (11.5-14.0); White Blood Count 21.7 K/mm3 (4.0-10.5)
[2020-12-28 18:34] LABS: Total Cells Counted 100
[2020-12-28 18:45] LABS: INR 1.37 INR (0.92-1.08); Partial Thrombolplastin Time 32.5 Seconds (24-32)
[2020-12-28 18:46] LABS: Albumin * 3.1 gm/dl (3.4-5.0); Anion Gap 11.1 mmol/L (6.8-13.8); Bilirubin, Total 0.3 mg/dL (0.0-1.1); Ca. Corrected For Albumin 9.8 mg/dL (8.4-10.2); Calcium * 9.4 mg/dL (7.9-10.9); Carbon Dioxide 30.7 mmol/L (24-32.6); Potassium 4.8 mmol/L (3.4-4.6); Total Protein 8.2 gm/dL (6.2-8.2)
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
[2020-12-28] MEDS ORDERED: ACETAMINOPHEN 1,000 MG/100 ML BTL IV ONE (18:47)
[2020-12-28 19:00] LABS: Urine Bilirubin Negative (NEGATIVE); Urine Blood 25 /ul (NEGATIVE); Urine Ketone Negative (NEGATIVE); Urine Protein Negative (NEGATIVE); Urine Specific Gravity >=1.030 SP.GR. (1.005-1.010); Urine Urobilinogen Normal (NORMAL); Urine pH 5.5 pH (5.0-7.0)
[2020-12-28 19:14] LABS: Urine Appearance Clear (CLEAR); Urine Bacteria 3+; Urine Color Yellow; Urine Nitrite Positive (NEGATIVE); Urine RBC TRACE /hpf (0-5); Urine WBC TRACE /hpf (0-5)
[2020-12-28] MEDS ORDERED: cefTRIAXone SODIUM 1,000 MG/100 ML BAG IV ONE (19:17)
[2020-12-28 19:34] LABS: Band 1 % (0-2.0); Basophil 1 % (0-1); Giant Platelets 1+; Lymphocyte 19 % (20-51); Monocyte 5 % (0-9); Neutrophil 74 % (42-75); Neutrophil # 16.1 K/mm3 (1.3-6.0); Platelet Estimate Normal (NORMAL); Target Cells Trace
[2020-12-28] MEDS ORDERED: ALBUTEROL SULFATE 200 PUFF INHALER IH PRN (21:38)
[2020-12-28] MEDS ORDERED: ALBUTEROL SULFATE 2.5 MG/0.5 ML VIAL.NEB IH PRN (21:58)
--- NOTE | 2020-12-28 22:06 | HP ---
Chief Complaint - Chief Complaint Date of Service: 12/28/20 Time of Service: 21:40 Chief Complaint: fall History of Present Illness: Patient with PMHx of previous hip fracture, COPD on 2L O2 baseline, GERD, renal cell carcinoma is a resident of the [facility], where she fell earlier this evening. She was given fentanyl by EMS. Xray shows an acute intertrochanteric right hip fracture. She has severe osteoporosis and numerous compression fractures of the thoracic spine and L1, which are age indeterminate. She had a fall and subsequent left hip fracture repaired surgically last year. CXR showed no new consolidation. EKG shows 1st degree heart block, RBBB present on previous. WBC elevated at 21.7, troponin is not elevated. Potassium slightly high at 4.8. UA positive for blood, nitrates, and bacteria, so she was given a dose of rocephin for UTI. She has had increased frequency, but denies dysuria. She is able to answer questions logically, and seems to understand the situation, and she consents to surgery knowing she is at high risk. She will be having spinal only, and not general anesthesia. At the time of my exam, she is using an oxymask with 6L O2, which is an increase from earlier in the evening. Medical History (Last Reviewed 12/28/20 @ 20:34 by Thais Gonzalez RN) Back pain (Chronic) Chronic respiratory failure (Chronic) Renal cell carcinoma (Chronic) Osteoarthritis (Chronic) Osteoporosis (Chronic) Type II diabetes mellitus (Chronic) HTN (hypertension) (Chronic) COPD (chronic obstructive pulmonary disease) (Chronic) Frequent falls Anemia Arthritis COPD (chronic obstructive pulmonary disease) Chronic respiratory failure Depression GERD (gastroesophageal reflux disease) Hypotension Osteoarthritis Osteoporosis PUD (peptic ulcer disease) Protein-energy malnutrition Renal cell carcinoma Type II diabetes mellitus Pleural effusion Surgical History: Surgical History (Last Reviewed 12/28/20 @ 20:36 by Thais Gonzalez RN) Status post hip surgery Onset Date: 04/28/20 Closed reduction, cephalo-medullary fixation left intertrochanteric femur fracture - 04/28/20 Dr. Cui H/O endoscopy Onset Date: ~04/22/13 History of appendectomy Onset Date: Unknown History of bronchoscopy Onset Date: ~04/28/18 History of cataract surgery Onset Date: ~09/01/02 History of colonoscopy Onset Date: ~06/2003 History of exploratory laparotomy Onset Date: ~12/23/12 2014 History of left knee replacement Onset Date: ~2002 History of nasal sinusotomy Onset Date: ~2007 History of nephrectomy Onset Date: ~08/25/95 Family History: Family History (Last Reviewed 12/28/20 @ 20:37 by Thais Gonzalez RN) Brother Heart disease Mother Myocardial infarction Sister Cancer colon cancer Social History: (Last Updated 12/28/20 @ 20:39 by Thais Gonzalez RN) Social History: senior living: Yes current occupational status: retired Tobacco: Smoking Status: Former smoker how long ago did patient quit smokin-40 years ago Alcohol: alcohol intake: never Substance Use: substance use type: does not use Dietary Habits: caffeine: No Review Of Systems (GEN) - Review of Systems Generalized/Overall Review: Present: Weakness Respiratory: Present: Cough - for several weeks, Shortness of Breath Cardiac: Absent: Chest Pain, Edema Abdominal: Absent: Abdominal Pain Genitourinary: Present: Frequency. Absent: Burning Musculoskeletal: Present: Joint Pain Neurological: Present: No Symptoms Reported Immunizations: IMMUNIZATION HX Immunizations Up to Date Yes History of Influenza Vaccine Yes Hx Pneumococcal Vaccination Yes Allergies/Adverse Reactions: Allergies Allergy/AdvReac Type Severity Reaction Status Date / Time No Known Allergies Allergy Verified 12/28/20 17:19 Home Medications: HOME MEDICATIONS aspirin 81 mg chewable tablet 81 mg PO DAILY 04/21/19 [Last Taken 12/28/20 07:00] oxybutynin chloride 5 mg tablet 2.5 mg PO HS 04/21/19 [Last Taken 12/27/20 19:00] potassium chloride 10 mEq tablet,extended release 10 meq PO DAILY 04/21/19 [Last Taken 12/28/20 0700] acetaminophen 500 mg tablet 2 tab PO Q6H PRN 06/08/19 [Last Taken Unknown] calcium carbonate 600 mg (1,500 mg)-vitamin D3 500 unit capsule 1 tab PO TID cap 06/08/19 [Last Taken 12/28/20 07:00] fludrocortisone 0.1 mg tablet 0.1 mg PO DAILY #28 tab 06/08/19 [Last Taken 12/28/20 07:00] ipratropium 0.5 mg-albuterol 3 mg (2.5 mg base)/3 mL nebulization soln 3 ml IH Q6H PRN 06/08/19 [Last Taken 10/08/19] albuterol sulfate 1.25 mg IH Q2H PRN 07/13/19 [Last Taken 10/04/19] albuterol sulfate 90 mcg/actuation aerosol inhaler 2 puff IH Q4H PRN #85 g 07/13/19 [Last Taken 10/08/19] Lactobacillus Acidophilus [Acidophilus] 2 ea PO BID 11/19/19 [Last Taken 07:00] Omeprazole 40 mg PO DAILY 02/04/20 [Last Taken 12/28/20 07:00] Acetaminophen [Tylenol] 650 mg PO Q6H PRN 12/28/20 [Last Taken Unknown] Albuterol Sulfate [Ventolin Hfa] 2 puff IH Q4H PRN 12/28/20 [Last Taken Unknown] Budesonide [Pulmicort Respules] 2 ml IH BID 12/28/20 [Last Taken 12/28/20 07:00] Cyanocobalamin (Vitamin B-12) [Vitamin B-12] 500 mcg PO DAILY 12/28/20 [Last Taken 12/28/20 07:00] Sertraline HCl [Zoloft] 50 mg PO DAILY 12/28/20 [Last Taken 12/28/20 07:00] traMADol HCL [Tramadol HCl] 50 mg PO Q8H PRN 12/28/20 [Last Taken Unknown] Exam - Exam Vital Signs: Vital Signs - Last Taken Temp 36.9 C 12/28/20 20:40 Pulse 97 12/28/20 20:40 Resp 20 12/28/20 20:40 BP 116/58 12/28/20 20:40 Pulse Ox 97 12/28/20 20:40 Constitutional: Present: Cooperative, No distress, Elderly, Thin and frail Respiratory: Present: no respiratory distress, rhonchi - improvement with cough, other - using 6L via NC, Cardiovascular/Chest: Present: regular rate, rhythm Abdomen: Present: Normal bowel sounds Extremity: Absent: lower extremity edema Eye contact: Present: good eye contact Diagnostic Studies: Abnormal Lab Results 12/28/20 12/28/20 12/28/20 Range/Units 18:18 18:18 18:18 WBC 21.7 H (4.0-10.5) K/mm3 Hgb 11.4 L (12.5-16.0) gm/dL MCH 26.0 L (27-31) pg MCHC 29.8 L (32-36) g/dl RDW 16.8 H (11.5-14.0) % Lymphocytes % (Manual) 19 L (20-51) % Neutrophils # (Manual) 16.1 H (1.3-6.0) K/mm3 Lymphocytes # (Manual) 4.1 H (1.5-3.5) k/mm3 Monocytes # (Manual) 1.1 H (0.0-1.0) k/mm3 Basophils # (Manual) 0.2 H (0.0-0.1) k/mm3 PT 14.0 H (9.1-10.7) Seconds INR (Anticoag Therapy) 1.37 H (0.92-1.08) INR PTT ([place]) 32.5 H (24-32) Seconds Potassium 4.8 H (3.4-4.6) mmol/L BUN 32 H D (3-23) mg/dL BUN/Creatinine Ratio 40.0 H (9.0-21.6) Random Glucose 162 H (70-110) mg/dL Albumin 3.1 L (3.4-5.0) gm/dl Urine Blood (NEGATIVE) /ul Urine Nitrate (NEGATIVE) Urine WBC (0-5) /hpf Urine Bacteria (NONE) 12/28/20 Range/Units 18:30 WBC (4.0-10.5) K/mm3 Hgb (12.5-16.0) gm/dL MCH (27-31) pg MCHC (32-36) g/dl RDW (11.5-14.0) % Lymphocytes % (Manual) (20-51) % Neutrophils # (Manual) (1.3-6.0) K/mm3 Lymphocytes # (Manual) (1.5-3.5) k/mm3 Monocytes # (Manual) (0.0-1.0) k/mm3 Basophils # (Manual) (0.0-0.1) k/mm3 PT (9.1-10.7) Seconds INR (Anticoag Therapy) (0.92-1.08) INR PTT ([place]) (24-32) Seconds Potassium (3.4-4.6) mmol/L BUN (3-23) mg/dL BUN/Creatinine Ratio (9.0-21.6) Random Glucose (70-110) mg/dL Albumin (3.4-5.0) gm/dl Urine Blood 25 H (NEGATIVE) /ul Urine Nitrate Positive H (NEGATIVE) Urine WBC Trace H (0-5) /hpf Urine Bacteria 3+ H (NONE) Laboratory Results WBC 21.7 K/mm3 (4.0-10.5) H 12/28/20 18:18 RBC 4.39 M/mm3 (4.2-5.4) 12/28/20 18:18 Hgb 11.4 gm/dL (12.5-16.0) L 12/28/20 18:18 Hct 38.2 % (37.0-47.0) 12/28/20 18:18 MCV 87.0 fl (78-100) 12/28/20 18:18 MCH 26.0 pg (27-31) L 12/28/20 18:18 MCHC 29.8 g/dl (32-36) L 12/28/20 18:18 RDW 16.8 % (11.5-14.0) H 12/28/20 18:18 Plt Count 304 K/mm3 (150-450) 12/28/20 18:18 MPV 11.5 fl (8-12.5) 12/28/20 18:18 Neutrophils % (Manual) 74 % (42-75) 12/28/20 18:18 Band Neuts % (Manual) 1 % (0-2.0) 12/28/20 18:18 Lymphocytes % (Manual) 19 % (20-51) L 12/28/20 18:18 Monocytes % (Manual) 5 % (0-9) 12/28/20 18:18 Basophils % (Manual) 1 % (0-1) 12/28/20 18:18 Neutrophils # (Manual) 16.1 K/mm3 (1.3-6.0) H 12/28/20 18:18 Lymphocytes # (Manual) 4.1 k/mm3 (1.5-3.5) H 12/28/20 18:18 Monocytes # (Manual) 1.1 k/mm3 (0.0-1.0) H 12/28/20 18:18 Basophils # (Manual) 0.2 k/mm3 (0.0-0.1) H 12/28/20 18:18 Platelet Estimate Normal (NORMAL) 12/28/20 18:18 Giant Platelets 1+ 12/28/20 18:18 Target Cells Trace 12/28/20 18:18 PT 14.0 Seconds (9.1-10.7) H 12/28/20 18:18 INR (Anticoag Therapy) 1.37 INR (0.92-1.08) H 12/28/20 18:18 PTT ([place]) 32.5 Seconds (24-32) H 12/28/20 18:18 Sodium 140 mmol/L (132-142) 12/28/20 18:18 Plasma Sodium 141 mmol/L (130-142) 12/28/20 18:18 Potassium 4.8 mmol/L (3.4-4.6) H 12/28/20 18:18 Chloride 103 mmol/L (97-106) 12/28/20 18:18 Carbon Dioxide 30.7 mmol/L (24-32.6) 12/28/20 18:18 Anion Gap 11.1 mmol/L (6.8-13.8) 12/28/20 18:18 BUN 32 mg/dL (3-23) H D 12/28/20 18:18 Creatinine 0.80 mg/dL (0.4-1.4) 12/28/20 18:18 Est GFR (Non-Af Amer) 73 mL/min (60-130) D 12/28/20 18:18 BUN/Creatinine Ratio 40.0 (9.0-21.6) H 12/28/20 18:18 Random Glucose 162 mg/dL (70-110) H 12/28/20 18:18 Calcium 9.4 mg/dL (7.9-10.9) 12/28/20 18:18 Calcium Adj for Albumin 9.8 mg/dL (8.4-10.2) 12/28/20 18:18 Total Bilirubin 0.3 mg/dL (0.0-1.1) 12/28/20 18:18 AST 21 U/L (0-48) 12/28/20 18:18 ALT 22 U/L (19-67) 12/28/20 18:18 Alkaline Phosphatase 143 U/L (50-170) 12/28/20 18:18 Troponin I Less than 0.017 ng/mL (0.00-0.10) 12/28/20 18:18 Total Protein 8.2 gm/dL (6.2-8.2) 12/28/20 18:18 Albumin 3.1 gm/dl (3.4-5.0) L 12/28/20 18:18 Urine Color Yellow 12/28/20 18:30 Urine Appearance Clear (CLEAR) 12/28/20 18:30 Urine pH 5.5 pH (5.0-7.0) 12/28/20 18:30 Ur Specific [place] >=1.030 SP.GR. (1.005-1.010) 12/28/20 18: Urine Protein Negative mg/dL (NEGATIVE) 12/28/20 18: Urine Glucose (UA) Negative mg/dL (NEGATIVE) 12/28/20 18:30 Urine Ketones Negative mg/dL (NEGATIVE) 12/28/20 18:30 Urine Blood 25 /ul (NEGATIVE) H 12/28/20 18:30 Urine Nitrate Positive (NEGATIVE) H 12/28/20 18:30 Urine Bilirubin Negative mg/dl (NEGATIVE) 12/28/20 18:30 Urine Urobilinogen Normal EU/dl (NORMAL) 12/28/20 18:30 Ur Leukocyte Esterase Negative /ul (NEGATIVE) 12/28/20 18:30 Urine RBC Trace /hpf (0-5) 12/28/20 18:30 Urine WBC Trace /hpf (0-5) H 12/28/20 18:30 Ur Epithelial Cells Trace /hpf (0-5) 12/28/20 18:30 Urine Bacteria 3+ (NONE) H 12/28/20 18:30 Urine Culture Comments Culture to follow 12/28/20 18:30 SARS-CoV-2 (PCR) Not detected (NotDetected) 12/28/20 18:20 Blood Type O Positive 12/28/20 18: Antibody Screen Negative 12/28/20 18:18 Assessment/Plan - Narrative Narrative: Using the NSQIP surgical risk calculator, she is above average risk for complication. She is aware and would like to proceed. OK to proceed with hip fracture repair surgery with spinal anesthesia, which decreases her risk of perioperative cardiovascular complications. Will add IV morphine to her home tylenol and tramadol, each option to use as needed. She walks with assistance at baseline, and would like for her to return to that level of function. She had her other hip repaired last year without significant complication. Anticipate she will be able to return to the care center when she has met PT goals. Her UA shows signs of infection, and she's been having increased urination. She was given a dose of rocephin. Procalcitonin pending. She has congestion on her lung exam and is using increased oxygen from her baseline. No signs of consolidation on her CXR. The congestion changes with cough, so I believe it is bronchial mucus. She reports having a long standing cough, likely from her COPD. Will continue her home COPD meds. - Assessment/Plan (1) Closed right hip fracture Problem: Acute (2) COPD (chronic obstructive pulmonary disease) Problem: Chronic (3) UTI (urinary tract infection) Assessment: Rocephin given. Urine culture pending. Problem: Suspected (4) Chronic respiratory failure with hypoxia Assessment: Wean to baseline O2. Problem: Chronic (5) Protein calorie malnutrition Problem: Acute (6) Back pain Problem: Chronic Qualifiers: (7) GERD (gastroesophageal reflux disease) Problem: Chronic Qualifiers: (8) Renal cell carcinoma Problem: Chronic Qualifiers: (9) Osteoporosis Problem: Chronic Qualifiers: (10) Type II diabetes mellitus Assessment: Diet controlled. will check glucose with CMP. Problem: Chronic Qualifiers: (11) HTN (hypertension) Problem: Chronic Qualifiers:
[2020-12-28] MEDS ORDERED: NORMAL SALINE 1,000 ML IV PRN (22:09)
[2020-12-28] MEDS: ALBUTEROL SULFATE/IPRATROPIUM 3 ML NEBU IH PRN (22:10)
[2020-12-28] MEDS: BUDESONIDE 0.5 MG/2 ML VIAL.NEB IH SCH (22:16)
[2020-12-28] MEDS: OXYBUTYNIN CHLORIDE 5 MG TABLET PO SCH (22:30)
[2020-12-28] MEDS: traMADol HCL 50 MG TABLET PO PRN (23:26)
[2020-12-29] MEDS: ACETAMINOPHEN 325 MG TABLET PO PRN ×3 (01:07→20:12)
[2020-12-29] MEDS: BUDESONIDE 0.5 MG/2 ML VIAL.NEB IH SCH ×2 (06:00→18:08)
[2020-12-29] MEDS: ALBUTEROL SULFATE/IPRATROPIUM 3 ML NEBU IH PRN (06:03)
--- NOTE | 2020-12-29 07:43 | CONS ---
[facility] - General Date of Service: 12/29/20 Narrative: El is an 85-year-old female living in a fdc. She states that she was getting up with the nurse when she fell resulting in injury to her right hip. She was brought to the emergency department found to have a right intertrochanteric femur fracture. She has a history of the left side being fix for intertrochanteric femur fracture as well. She did take Xarelto yesterday. Per the MD notes she is unaware of why she is taking it. My concern is is that this was not discontinued after her prior hip fracture as this would be the only reason I could come up with. She reports right hip pain but no other concerns. Source: patient, RN/MD Exam Limitations: clinical condition - History of Present Illness Timing/Duration: 24 hours Severity: mild Modifying Factors - (Worsens): Reports: movement Modifying Factors - (Improves): Reports: immobilization Associated Symptoms: denies symptoms Allergies/Adverse Reactions: Allergies No Known Allergies Allergy (Verified 12/28/20 17:19) Home Medications: Home Medications Medication Instructions Recorded Last Taken aspirin 81 mg chewable tablet 81 mg PO DAILY 04/21/19 12/28/20 07:00 oxybutynin chloride 5 mg tablet 2.5 mg PO HS 04/21/19 12/27/20 19:00 potassium chloride 10 mEq 10 meq PO DAILY 04/21/19 12/28/20 tablet,extended release 0700 acetaminophen 500 mg tablet 2 tab PO Q6H PRN 06/08/19 Unknown calcium carbonate 600 mg (1,500 1 tab PO TID cap 06/08/19 12/28/20 07:00 mg)-vitamin D3 500 unit capsule fludrocortisone 0.1 mg tablet 0.1 mg PO DAILY #28 tab 06/08/19 12/28/20 07:00 ipratropium 0.5 mg-albuterol 3 mg 3 ml IH Q6H PRN 06/08/19 10/08/19 (2.5 mg base)/3 mL nebulization soln albuterol sulfate 1.25 mg IH Q2H PRN 07/13/19 10/04/19 albuterol sulfate 90 mcg/actuation 2 puff IH Q4H PRN #85 g 07/13/19 10/08/19 aerosol inhaler Lactobacillus Acidophilus 2 ea PO BID 11/19/19 12/28/20 07:00 [Acidophilus] Omeprazole 40 mg PO DAILY 02/04/20 12/28/20 07:00 Acetaminophen [Tylenol] 650 mg PO Q6H PRN 12/28/20 Unknown Albuterol Sulfate [Ventolin Hfa] 2 puff IH Q4H PRN 12/28/20 Unknown Budesonide [Pulmicort Respules] 2 ml IH BID 12/28/20 12/28/20 07:00 Cyanocobalamin (Vitamin B-12) 500 mcg PO DAILY 12/28/20 12/28/20 07:00 [Vitamin B-12] Sertraline HCl [Zoloft] 50 mg PO DAILY 12/28/20 12/28/20 07:00 traMADol HCL [Tramadol HCl] 50 mg PO Q8H PRN 12/28/20 Unknown Procedures Reposition Left Upper Femur with Intramedullary Internal Fixation Device, Percutaneous Approach (04/27/20) Medications - Medications Current Medications: Current Medications Acetaminophen (Acetaminophen 325 Mg Tablet) 650 mg PO Q6H PRN PRN Reason: Pain Stop: 01/27/21 21:58 Last Admin: 12/29/20 01:07 Dose: 650 mg Documented by: Albuterol/Ipratropium (Albuterol Sulfate/Ipratropium 3 Ml Nebu) 3 ml IH Q6H PRN PRN Reason: Shortness Of Breath Stop: 01/27/21 21:39 Last Admin: 12/29/20 06:03 Dose: 3 ml Documented by: Budesonide (Budesonide 0.5 Mg/2 Ml Vial.Neb) 0.5 mg IH BIDRT MATTHEW Stop: 01/27/21 22:01 Last Admin: 12/29/20 06:00 Dose: 0.5 mg Documented by: Sodium Chloride (Sodium Chloride 0.9%) 1,000 mls @ 50 mls/hr IV .Q20H PRN PRN Reason: HYDRATION Stop: 01/27/21 22:10 Last Admin: 12/28/20 22:38 Dose: 50 mls/hr Documented by: Oxybutynin Chloride (Oxybutynin Chloride 5 Mg Tablet) 2.5 mg PO HS MATTHEW Stop: 01/27/21 22:01 Last Admin: 12/28/20 22:30 Dose: 2.5 mg Documented by: Tramadol HCl (Tramadol Hcl 50 Mg Tablet) 50 mg PO Q8H PRN PRN Reason: Pain Stop: 01/27/21 21:39 Last Admin: 12/28/20 23:26 Dose: 50 mg Documented by: Review of Systems - Review of Systems Narrative: As above Physical Examination - Exam Narrative: Right lower extremity: Shortened and externally rotated, palpable dorsalis pedis pulse, sensations intact light touch, able to flex and extend the toes and ankle, thigh is soft, no lacerations or abrasions about the hip Vital Signs: Vital Signs - Last Taken Temp 37.2 C 12/29/20 06:43 Pulse 85 12/29/20 06:43 Resp 20 12/29/20 06:43 BP 121/71 12/29/20 06:43 Pulse Ox 96 12/29/20 06:43 O2 Oxygen Delivery Method Nasal Cannula Constitutional: Present: Alert - Results and Findings: Narrative: AP pelvis 2 views of right hip: Intertrochanteric femur fracture displaced Lab/Microbiology results last 24 hrs: Abnormal/Pending Laboratory Last 24 HRS 12/28/20 12/28/20 12/28/20 18:30 18:18 18:18 WBC Hgb MCH MCHC RDW Lymphocytes % (Manual) Neutrophils # (Manual) Lymphocytes # (Manual) Monocytes # (Manual) Basophils # (Manual) PT INR (Anticoag Therapy) PTT (Millie) Potassium 4.8 H BUN 32 H D BUN/Creatinine Ratio 40.0 H Random Glucose 162 H Albumin 3.1 L Procalcitonin Less than 0.05 L Urine Blood 25 H Urine Nitrate Positive H Urine WBC Trace H Urine Bacteria 3+ H 12/28/20 12/28/20 18:18 18:18 WBC 21.7 H Hgb 11.4 L MCH 26.0 L MCHC 29.8 L RDW 16.8 H Lymphocytes % (Manual) 19 L Neutrophils # (Manual) 16.1 H Lymphocytes # (Manual) 4.1 H Monocytes # (Manual) 1.1 H Basophils # (Manual) 0.2 H PT 14.0 H INR (Anticoag Therapy) 1.37 H PTT ([place]) 32.5 H Potassium BUN BUN/Creatinine Ratio Random Glucose Albumin Procalcitonin Urine Blood Urine Nitrate Urine WBC Urine Bacteria Culture 12/28/20 18:51 Urine Culture - Preliminary Urine,Catheterized Gram Negative Bacilli - Assessments/Findings (1) Fracture, intertrochanteric, right femur Diagnosis(s): The plan will be for intramedullary nail fixation of the right hip. As she had Xarelto yesterday, in order to undergo a spinal anesthetic it would have to be 72 hours since her last dose and thus if she is only eligible for a spinal anesthetic he would have to wait 2 more days. If she is able to have a general anesthetic this can be performed today. This would be discussed with anesthesia and the admitting physician. Problem: Acute Qualifiers: Encounter type: initial encounter Fracture type: closed Fracture alignment: displaced Qualified Code(s): S72.141A - Displaced intertrochanteric fracture of right femur, initial encounter for closed fracture
[2020-12-29] MEDS ORDERED: BUDESONIDE 0.5 MG/2 ML VIAL.NEB IH SCH (09:00)
--- NOTE | 2020-12-29 09:24 | PN ---
Subjective - Date and Time Seen Date: 12/29/20 Time: 08:15 Subjective Narrative: Spoke with her [id number], Sena, who gave further background info. She gets loopy with pain meds. Last received tramadol yesterday evening at 23:26. For the most part, she is clear, but has some days where she is not as clear. Dementia has been suspected, and [facility] wanted to do testing, but she was disqualified because she was in a [facility]. COVID delayed further testing. Objective - Review of Systems Generalized/Overall Review: Reports: Weakness. Denies: Fever Respiratory: Denies: Shortness of Breath Abdominal: Denies: Vomiting Genitourinary Symptoms: Reports: Frequency Musculoskeletal Complaints: Reports: Joint Pain - right hip - Vitals Vitals: Last Vital Signs Temp 37.2 C 12/29/20 06:43 Pulse 85 12/29/20 06:43 Resp 20 12/29/20 06:43 BP 121/71 12/29/20 06:43 Pulse Ox 96 12/29/20 06:43 - Abnormal Lab Findings Abnormal Lab Findings: Abnormal Lab Results 12/28/20 12/28/20 12/28/20 Range/Units 18:18 18:18 18:18 WBC 21.7 H (4.0-10.5) K/mm3 Hgb 11.4 L (12.5-16.0) gm/dL MCH 26.0 L (27-31) pg MCHC 29.8 L (32-36) g/dl RDW 16.8 H (11.5-14.0) % Lymphocytes % (Manual) 19 L (20-51) % Neutrophils # (Manual) 16.1 H (1.3-6.0) K/mm3 Lymphocytes # (Manual) 4.1 H (1.5-3.5) k/mm3 Monocytes # (Manual) 1.1 H (0.0-1.0) k/mm3 Basophils # (Manual) 0.2 H (0.0-0.1) k/mm3 PT 14.0 H (9.1-10.7) Seconds INR (Anticoag Therapy) 1.37 H (0.92-1.08) INR PTT ([place]) 32.5 H (24-32) Seconds Potassium 4.8 H (3.4-4.6) mmol/L BUN 32 H D (3-23) mg/dL BUN/Creatinine Ratio 40.0 H (9.0-21.6) Random Glucose 162 H (70-110) mg/dL Albumin 3.1 L (3.4-5.0) gm/dl Procalcitonin (0.05-0.50) ng/mL Urine Blood (NEGATIVE) /ul Urine Nitrate (NEGATIVE) Urine WBC (0-5) /hpf Urine Bacteria (NONE) 12/28/20 12/28/20 Range/Units 18:18 18:30 WBC (4.0-10.5) K/mm3 Hgb (12.5-16.0) gm/dL MCH (27-31) pg MCHC (32-36) g/dl RDW (11.5-14.0) % Lymphocytes % (Manual) (20-51) % Neutrophils # (Manual) (1.3-6.0) K/mm3 Lymphocytes # (Manual) (1.5-3.5) k/mm3 Monocytes # (Manual) (0.0-1.0) k/mm3 Basophils # (Manual) (0.0-0.1) k/mm3 PT (9.1-10.7) Seconds INR (Anticoag Therapy) (0.92-1.08) INR PTT (Millie) (24-32) Seconds Potassium (3.4-4.6) mmol/L BUN (3-23) mg/dL BUN/Creatinine Ratio (9.0-21.6) Random Glucose (70-110) mg/dL Albumin (3.4-5.0) gm/dl Procalcitonin Less than 0.05 L (0.05-0.50) ng/mL Urine Blood 25 H (NEGATIVE) /ul Urine Nitrate Positive H (NEGATIVE) Urine WBC Trace H (0-5) /hpf Urine Bacteria 3+ H (NONE) - Exam Constitutional: Present: No distress, Elderly, Thin and frail Respiratory: Present: other - using 4L via NC Cardiovascular/Chest: Present: regular rate, rhythm Abdomen: Present: Normal bowel sounds Extremity: Absent: lower extremity edema Neurologic: Present: other - confusion. When listening to chest, she asked "Are ya painting something?" Eye contact: Present: good eye contact Cauti Physician Documentation - Urinary Catheter Management Urethral (Del Angel) Date of Insertion: 12/28/20 Time of Insertion: 18:30 Assessment/Plan Plan Narrative: Spoke with Sena for 10 minutes. Briefly discussed options including hospice, and Sena does not think she's ready for that. She verified that they would like to proceed with surgery. She's been on xarelto since April since her last surgery. Her last dose was yesterday morning, and she will need to be off xarelto for 72 hours prior to surgery, which will be Friday. Sena believes this should have been stopped several months ago. I do not find an alternate diagnosis that would necessitate xarelto use, so I believe this was meant to be short term after her other hip fracture repair. With her COPD, she is high risk for cardiovascular complications, so she will undergo spinal anesthesia for this surgery. She was requiring increased O2 yesterday evening, possibly due to narcotic administration. Wean to baseline O2, which is 2L. She has had decent pain control, and has not required morphine since admission yesterday evening. Can use tylenol, her home tramadol, or the morphine. Daughter in law reports increased confusion with pain meds. Diet started this morning, since she will not undergo surgery for 2 additional days. Del Angel placed last night in anticipation of surgery. - Problems/Diagnosis (1) Closed right hip fracture Problem: Acute (2) COPD (chronic obstructive pulmonary disease) Problem: Chronic (3) UTI (urinary tract infection) Problem: Suspected (4) Chronic respiratory failure with hypoxia Problem: Chronic (5) Protein calorie malnutrition Problem: Acute (6) Back pain Problem: Chronic Qualifiers: (7) GERD (gastroesophageal reflux disease) Problem: Chronic Qualifiers: (8) Renal cell carcinoma Problem: Chronic Qualifiers: (9) Osteoporosis Problem: Chronic Qualifiers: (10) Type II diabetes mellitus Problem: Chronic Qualifiers: (11) HTN (hypertension) Problem: Chronic Qualifiers:
[2020-12-29] MEDS: FLUDROCORTISONE ACETATE 0.1 MG TABLET PO SCH (09:34)
[2020-12-29] MEDS: SERTRALINE HCL 50 MG TABLET PO SCH (09:34)
--- NOTE | 2020-12-29 20:14 | ANES ---
Anesthesia Pre Procedure Eval Vitals/Labs: Last Vital Signs Temp 36.3 C 12/29/20 17:51 Pulse 86 12/29/20 18:18 Resp 20 12/29/20 18:18 BP 125/67 12/29/20 17:51 Pulse Ox 97 12/29/20 18:08 HOME MEDICATIONS aspirin 81 mg chewable tablet 81 mg PO DAILY 04/21/19 [Last Taken 12/28/20 07:00] oxybutynin chloride 5 mg tablet 2.5 mg PO HS 04/21/19 [Last Taken 12/27/20 19:00] potassium chloride 10 mEq tablet,extended release 10 meq PO DAILY 04/21/19 [Last Taken 12/28/20 0700] acetaminophen 500 mg tablet 2 tab PO Q6H PRN 06/08/19 [Last Taken Unknown] calcium carbonate 600 mg (1,500 mg)-vitamin D3 500 unit capsule 1 tab PO TID cap 06/08/19 [Last Taken 12/28/20 07:00] fludrocortisone 0.1 mg tablet 0.1 mg PO DAILY #28 tab 06/08/19 [Last Taken 12/28/20 07:00] ipratropium 0.5 mg-albuterol 3 mg (2.5 mg base)/3 mL nebulization soln 3 ml IH Q6H PRN 06/08/19 [Last Taken 10/08/19] albuterol sulfate 1.25 mg IH Q2H PRN 07/13/19 [Last Taken 10/04/19] albuterol sulfate 90 mcg/actuation aerosol inhaler 2 puff IH Q4H PRN #85 g 07/13/19 [Last Taken 10/08/19] Lactobacillus Acidophilus [Acidophilus] 2 ea PO BID 11/19/19 [Last Taken 12/28/20 07:00] Omeprazole 40 mg PO DAILY 02/04/20 [Last Taken 12/28/20 07:00] Acetaminophen [Tylenol] 650 mg PO Q6H PRN 12/28/20 [Last Taken Unknown] Albuterol Sulfate [Ventolin Hfa] 2 puff IH Q4H PRN 12/28/20 [Last Taken Unknown] Budesonide [Pulmicort Respules] 2 ml IH BID 12/28/20 [Last Taken 12/28/20 07:00] Cyanocobalamin (Vitamin B-12) [Vitamin B-12] 500 mcg PO DAILY 12/28/20 [Last Taken 12/28/20 07:00] Sertraline HCl [Zoloft] 50 mg PO DAILY 12/28/20 [Last Taken 12/28/20 07:00] traMADol HCL [Tramadol HCl] 50 mg PO Q8H PRN 12/28/20 [Last Taken Unknown] Allergies/Adverse Reactions: Allergies Allergy/AdvReac Type Severity Reaction Status Date / Time No Known Allergies Allergy Verified 12/28/20 17:19 - Planned Procedure Planned Procedure: Right Hip Fracture Medication List Reviewed:: Yes - Has been on Apixaban, last dose 12/28/20 Allergies Verified: Yes Medical History (Last Reviewed 12/29/20 @ 19:51 by Judson Heath CRNA) Back pain (Chronic) Chronic respiratory failure (Chronic) Renal cell carcinoma (Chronic) Osteoarthritis (Chronic) Osteoporosis (Chronic) Type II diabetes mellitus (Chronic) HTN (hypertension) (Chronic) COPD (chronic obstructive pulmonary disease) (Chronic) Frequent falls Anemia Arthritis COPD (chronic obstructive pulmonary disease) Chronic respiratory failure Depression GERD (gastroesophageal reflux disease) Hypotension Osteoarthritis Osteoporosis PUD (peptic ulcer disease) Protein-energy malnutrition Renal cell carcinoma Type II diabetes mellitus Pleural effusion Surgical History (Last Reviewed 12/29/20 @ 19:51 by Judson Heath CRNA) Status post hip surgery Onset Date: 04/28/20 Closed reduction, cephalo-medullary fixation left intertrochanteric femur fracture - 04/28/20 Dr. Cui H/O endoscopy Onset Date: ~04/22/13 History of appendectomy Onset Date: Unknown History of bronchoscopy Onset Date: ~04/28/18 History of cataract surgery Onset Date: ~09/01/02 History of colonoscopy Onset Date: ~06/2003 History of exploratory laparotomy Onset Date: ~12/23/12 2014 History of left knee replacement Onset Date: ~2002 History of nasal sinusotomy Onset Date: ~2007 History of nephrectomy Onset Date: ~08/25/95 Family History (Last Reviewed 12/29/20 @ 19:51 by Judson Heath CRNA) Brother Heart disease Mother Myocardial infarction Sister Cancer colon cancer - Family Anesthesia History Family History:: no untoward family reactions to anesthesia, no familial bl eeding tendencies - Daughter relates told "never have a general anesthesia" apparently a lung issue beyond COPD., no family history of clotting disorders, no family history of premature - Airway/Neck/Teeth Neck Exam: full range of motion Mallampatti Score: 2 Thyromental (T-M) distance: > 6 cm Mandibulo Hyoid distance: > 3 cm - Respiratory Respiratory History: COPD - O2 use at rest baseline. Respiratory Physical: decreased breath sounds, rhonchi Smoking Status: Former smoker - quit 40-50 years Sleep Apnea currently treated: No Sleep Apnea by current assessment: No - Cardiovascular Cardiac History: hypertension Tolerate Activity: Poor Heart Sounds: S1 & S2, Regular - Gastrointestinal NPO since: instructed after 2399 pm - Anesthesia Assessment and Plan Narrative: Discussed General anesthesia vs Spinal anesthesia at length with daughter. Ms Hayward had an episode of pulmonary hemorrhage in past for which she underwent a general (apparently ETT) anesthesia. Her recovery was apparently quite difficult. I would suspect the issue involved intolerance to positive pressure ventilation. We discussed the trade offs of risk with general, possibly LMA and SAB. Although SAB would normally be the preferred anesthetic, her recent Apixaban therapy would mean we would be unable to proceed until Friday which raises risks from immobility. Also of note is an INR of 1.34 without apparent warfarin therapy. She was on Sertraline prior to her last procedure (no INR was taken at that time) and I suspect that her INR was elevated at that time as well but cannot confirm this. I will recheck the INR prior to surgery and, if increased, may reconsider SAB and discuss this issue further with the POA. Regardless, She is a high risk patient regardless given her severe pulmonary status and renal disease. ASA Class: PS, IV Anesthesia Type Plan: Spinal
[2020-12-29] MEDS: OXYBUTYNIN CHLORIDE 5 MG TABLET PO SCH (20:46)
[2020-12-30] MEDS: ACETAMINOPHEN 325 MG TABLET PO PRN ×2 (02:26→11:56)
[2020-12-30] MEDS ORDERED: ceFAZolin SODIUM 1 GM VIAL IV PRN (06:00)
[2020-12-30] MEDS: BUDESONIDE 0.5 MG/2 ML VIAL.NEB IH SCH ×2 (06:16→18:02)
[2020-12-30] MEDS: SERTRALINE HCL 50 MG TABLET PO SCH (08:47)
[2020-12-30] MEDS: FLUDROCORTISONE ACETATE 0.1 MG TABLET PO SCH (08:47)
--- NOTE | 2020-12-30 10:57 | PN ---
Subjective - Date and Time Seen Date: 12/30/20 Time: 10:50 Subjective Narrative: I have right shoulder pain. Objective Objective Narrative: 85-year-old female admitted for right hip fracture secondary to fall was evaluated at bedside this morning was found to be afebrile and in no acute distress. Patient is resting comfortably and only complains of mild right shoulder pain due to injury to the right shoulder during the fall, however with the pain meds it is improving. This morning the patient is responsive although he cannot be determined what she tells me is accurate due to apparent dementia or altered mental status most likely due to the pain medications. She is scheduled for surgery tomorrow to repair her fracture with spinal anesthesia, however after reviewing her chart it is noted that she has not had labs in 3 days. Therefore a CBC and a CMP were ordered to reevaluate WBCs, renal function, and electrolytes. We will follow results and treat the patient accordingly. All anticoagulants have been held in order to prepare for tomorrow surgery. - Review of Systems Generalized/Overall Review: Reports: No Symptoms Reported EENTM: Reports: No Symptoms Reported Respiratory: Reports: No Symptoms Reported Cardiac: Reports: No Symptoms Reported Abdominal: Reports: No Symptoms Reported Genitourinary Symptoms: Reports: Frequency Musculoskeletal Complaints: Reports: Joint Pain - Right hip and right shoulder pain Neurological: Reports: No Symptoms Reported Skin: Reports: No Symptoms Reported Endocrine: Reports: No Symptoms Reported - Vitals Vitals: Last Vital Signs Temp 36.8 C 12/30/20 06:30 Pulse 106 H 12/30/20 09:05 Resp 22 H 12/30/20 06:30 BP 107/63 12/30/20 06:30 Pulse Ox 95 12/30/20 06:30 - Exam Constitutional: Present: Alert, Cooperative, No distress, Elderly, Thin and frail ENT Exam: Present: normal ENT inspection, hearing grossly normal Neck: Present: non-tender, full range of motion, supple, normal inspection, trachea midline Breasts: Present: Exam deferred Respiratory: Present: no respiratory distress, rhonchi Cardiovascular/Chest: Present: normal peripheral pulses, regular rate, rhythm, no chest tenderness, no edema, no gallop, no JVD, no murmur, no rub Abdomen: Present: Normal bowel sounds, soft, nontender, nondistended, no rebound tenderness, no hepatospenomegaly, no masses /Rectal: Present: Exam deferred Extremity: Present: no pedal edema, no calf tenderness, other - Right shortened externally rotated lower extremity. Skin Exam: Present: normal color, warm/dry, no cyanosis Lymphatic: Present: no adenopathy Neurologic: Present: no motor/sensory deficits, alert, normal mood/affect Appearance: Present: other Eye contact: Present: cooperative, good eye contact, normal speech Thoughts: Present: normal thought pattern, no apparent hallucination Cauti Physician Documentation - Urinary Catheter Management Urethral (Del Angel) Urethral Indwelling: Yes Date of Insertion: 12/28/20 Time of Insertion: 18:30 Assessment/Plan Plan Narrative: We will follow up with CBC and CMP results and treat accordingly. In the meantime pain medications will be administered to keep the patient comfortable. Surgery scheduled for tomorrow morning. - Problems/Diagnosis (1) Closed right hip fracture Problem: Acute (2) UTI (urinary tract infection) Problem: Suspected (3) Fracture, intertrochanteric, right femur Problem: Acute Qualifiers: Encounter type: initial encounter Fracture type: closed Fracture alignment: displaced Qualified Code(s): S72.141A - Displaced intertrochanteric fracture of right femur, initial encounter for closed fracture (4) Fall Problem: Acute Qualifiers: (5) Osteoporosis Problem: Chronic (6) Fracture of left hip Problem: Acute (7) COPD (chronic obstructive pulmonary disease) Problem: Chronic (8) UTI (urinary tract infection) Problem: Resolved (9) Chronic respiratory failure with hypoxia Problem: Chronic (10) Protein calorie malnutrition Problem: Acute (11) GERD (gastroesophageal reflux disease) Problem: Chronic Qualifiers: (12) Chronic respiratory failure Problem: Chronic Qualifiers: Respiratory failure complication: hypoxia Qualified Code(s): J96.11 - Chronic respiratory failure with hypoxia
[2020-12-30 11:15] LABS: Hemoglobin 10.3 gm/dL (12.5-16.0); Mean Corpuscular Hemoglobin 26.3 pg (27-31); Mean Corpuscular Hgb Conc 30.3 g/dl (32-36); Mean Platelet Volume 11.8 fl (8-12.5); Platelet Count 216 K/mm3 (150-450); Red Blood Count 3.91 M/mm3 (4.2-5.4); Red Cell Distribution Width 16.9 % (11.5-14.0); White Blood Count 22.4 K/mm3 (4.0-10.5)
[2020-12-30 11:28] LABS: Total Cells Counted 100
[2020-12-30 11:41] LABS: Albumin * 2.7 gm/dl (3.4-5.0); Anion Gap 10.1 mmol/L (6.8-13.8); BUN/Creatinine Ratio 34.4 (9.0-21.6); Bilirubin, Total 0.3 mg/dL (0.0-1.1); Ca. Corrected For Albumin 9.9 mg/dL (8.4-10.2); Calcium * 9.2 mg/dL (7.9-10.9); Carbon Dioxide 29.4 mmol/L (24-32.6); Potassium 4.5 mmol/L (3.4-4.6); Total Protein 7.2 gm/dL (6.2-8.2)
[2020-12-30 11:55] LABS: Atypical (Reactive) Lymph 3 % (0-2); Band 1 % (0-2.0); Basophil 2 % (0-1); Eosinophil 2 % (0-3); Lymphocyte 4 % (20-51); Monocyte 2 % (0-9); Neutrophil 86 % (42-75); Neutrophil # 19.3 K/mm3 (1.3-6.0)
[2020-12-30 11:56] LABS: Anisocytosis Trace; Platelet Estimate Normal (NORMAL)
[2020-12-30] MEDS: MORPHINE SULFATE 2 MG/ML DISP.SYRIN IV PRN (15:36)
[2020-12-30 19:07] LABS: Prothrombin Time (Patient) 12.1 Seconds (9.1-10.7)
[2020-12-30 19:10] LABS: INR 1.17 INR (0.92-1.08)
[2020-12-30] MEDS: OXYBUTYNIN CHLORIDE 5 MG TABLET PO SCH (20:47)
[2020-12-31] MEDS ORDERED: guaiFENesin 100 MG/5 ML SYRUP PO PRN (00:22)
[2020-12-31] MEDS: ALBUTEROL SULFATE/IPRATROPIUM 3 ML NEBU IH PRN (00:40)
[2020-12-31] MEDS: MORPHINE SULFATE 2 MG/ML DISP.SYRIN IV PRN ×2 (01:04→17:58)
[2020-12-31] MEDS: traMADol HCL 50 MG TABLET PO PRN (04:09)
[2020-12-31] MEDS: BUDESONIDE 0.5 MG/2 ML VIAL.NEB IH SCH ×2 (06:21→18:02)
[2020-12-31] MEDS ORDERED: LIDOCAINE HCL 20 ML VIAL ONE (07:32)
[2020-12-31] MEDS ORDERED: MIDAZOLAM HCL/PF 1 MG/ML VIAL ONE (07:32)
[2020-12-31] MEDS ORDERED: BUPIVACAINE HCL/PF 10 ML VIAL ONE (07:33)
[2020-12-31] MEDS ORDERED: PROPOFOL VIAL IV ONE (07:33)
[2020-12-31] MEDS ORDERED: ceFAZolin SODIUM 1 GM VIAL ONE (08:08)
--- NOTE | 2020-12-31 08:43 | PREOP NOTE ---
Preoperative Progress Note - Preoperative Changes Changes to Preop Condition?: No Changes
[2020-12-31] MEDS: RINGER'S SOLUTION,LACTATED 1,000 ML IV PRN ×2 (08:55→14:42)
[2020-12-31] MEDS ORDERED: MAGNESIUM HYDROXIDE 30 ML UDC PO PRN (09:55)
[2020-12-31] MEDS ORDERED: ONDANSETRON HCL/PF 2 MG/ML VIAL IV PRN (09:55)
[2020-12-31] MEDS ORDERED: MAG HYDROX/ALUMINUM HYD/SIMETH 30 ML UDC PO PRN (09:55)
[2020-12-31] MEDS ORDERED: ACETAMINOPHEN 500 MG TABLET PO PRN (09:55)
--- NOTE | 2020-12-31 09:55 | OR ---
Operative Report - Dictated Report Narrative: Date: 12/31/2020 Surgeon: Nikita Cui M.D. Summer Associate: None Preoperative diagnosis: Closed right intertrochanteric femur fracture Postoperative diagnosis: Closed right intertrochanteric femur fracture Operations and procedures: 1. Closed reduction, cephalo-medullary fixation right intertrochanteric femur fracture 2. Intraoperative interpretation of radiographs Anesthesia: Spinal Specimens: None Estimated blood loss: 25 milliliters Retained implants: [employer] Trigen InterTAN 130 degree size 11.5 mm by 18 centimeter nail with 100 millimeter lag screw and 95 millimeter compression screw, with distal locking screw Complications: None Indications for procedure: Mrs. Hayward 85-year-old senior care patient who injured the right leg after ground-level fall. They were admitted to the hospital after being evaluated in the emergency department. Once the medical provider felt that they were stable for surgical treatment, the risks and benefits alternatives were discussed. The risks of , blood clots, bleeding, infection, nerve/tendon/blood vessel injury, malunion, nonunion, failure of implants, painful implants, arthrosis, and need for additional procedures were discussed. The extremity was marked and consent was obtained on the floor. Procedure: After marking the operative extremity on the floor, the patient was taken to the operating room. A timeout was performed. IV antibiotics consisting of Ancef were administered. A spinal anesthetic was induced by anesthesia, and the patient was then placed onto a fracture table with a well-padded perineal post. The nonoperative leg was placed in a well-padded traction boot in slight extension without any traction with an SCD on the leg. The operative leg was placed in a well-padded traction boot. Longitudinal traction, internal rotation, and flexion were utilized in order to reduce the fracture. Preliminary images were attained utilizing C-arm in both the AP and lateral views. This confirmed that we had obtained adequate visualization of the fracture as well as reduction. Next the hip was then prepped and draped in a standard sterile fashion. Next the guidewire was placed percutaneously proximal to the greater trochanter to elizabeth a starting point at the tip of the greater trochanter centered on the lateral view. This was passed down to the level below the lesser trochanter. A scalpel was utilized in order to dissect down to the greater trochanter in order to place the soft tissue protector down to bone. The entry drill was then placed down the proximal femur to the level of the lesser trochanter. The proper size nail was then selected and impacted into place. The outrigger was utilized in order to confirm the appropriate depth of the nail. Using the alignment device on the outrigger, an incision was made over the lateral femur. Sharp dissection was carried through the iliotibial band down to the proximal femur. The guidewire was placed into the femoral head in a center- center position on AP and lateral views. The tip-apex distance of less than 25 mm combined was obtained. Once we felt that we had placed a guidewire in the appropriate position, it was measured. Next the compression screw site was drilled through the lateral femoral cortex. This was then drilled down to the appropriate depth, again confirming that we are within the confines the bone. The derotational bar was then placed and the lag screw was drilled. The lag screw was then secured in place seating fully ensuring that we were within the confines of the bone. The compression screw was then inserted allowing for compression while releasing the traction on the leg. Using C-arm this was visualized to allow for compression across the fracture site. Once is felt that we had adequately stabilized the intertrochanteric fracture, the distal interlocking screw was placed in a dynamic position. It was confirmed to be the appropriate length and within the nail on both AP and lateral views. The nail was secured allowing for controlled compression and the outrigger was removed. The wounds were then thoroughly irrigated. Final images were obtained. The hip was placed through range of motion and showed no crepitance. The deep fascia was closed with 0 Vicryl, the subcutaneous tissue with 3-0 Vicryl, and the skin was closed with layla. Sterile dressings of Xeroform, 4 x 4, and tape were applied. All sponge, sharp, and instrument counts were correct prior to closing the wounds. The patient was then awoken and transferred to the postanesthesia care unit in stable condition.
--- NOTE | 2020-12-31 10:10 | ANES ---
Post Anesthesia Discharge - Transfer of Care Transfer of Care handoff given to nurse: Yes - Discharge from PACU Discharge from PACU when meets criteria: Yes - Comfortable.
--- NOTE | 2020-12-31 10:34 | ANES ---
Post Anesthesia Assessment - Vital Signs Vitals: Last Vital Signs Temp 36.7 C 12/31/20 10:30 Pulse 92 12/31/20 10:30 Resp 19 12/31/20 10:30 BP 100/63 12/31/20 10:30 Pulse Ox 99 12/31/20 10:30 Airway Patency: Normal - Mental Status Level Of Consciousness: Drowsy - Pain Level Pain Score: 0 - N/V Assessment Nausea/Vomiting Presence: None Dehydration:: No
[2020-12-31] MEDS: SERTRALINE HCL 50 MG TABLET PO SCH (11:01)
[2020-12-31] MEDS: FLUDROCORTISONE ACETATE 0.1 MG TABLET PO SCH (11:01)
[2020-12-31] MEDS: ceFAZolin SODIUM 1 GM in DEXTROSE 5 % IN WATER 100 ML IV SCH ×6 (11:08→23:36)
--- NOTE | 2020-12-31 11:14 | PN ---
Subjective - Date and Time Seen Date: 12/31/20 Time: 11:07 Objective Objective Narrative: 85-year-old female Status post Closed reduction cephalo-medullary fixation right intertrochanteric femur fracture post op day # 0 was evaluated at bedside was found to be afebrile and sedated after undergoing an uneventful surgical repair of a right hip fracture. There were no adverse events reported during today's procedure and the patient is resting comfortably in her room now. At the moment she presents stable vitals and does not show any signs of distress or other abnormality. The patient was treated with a breathing treatment during the night which helped significantly with her breathing, we had no issues with her after that. - Review of Systems Generalized/Overall Review: Reports: No Symptoms Reported EENTM: Reports: No Symptoms Reported Respiratory: Reports: Shortness of Breath Cardiac: Reports: No Symptoms Reported Abdominal: Reports: No Symptoms Reported Genitourinary Symptoms: Reports: No Symptoms Reported Musculoskeletal Complaints: Reports: Joint Pain Neurological: Reports: Pre-existing Deficit Skin: Reports: No Symptoms Reported Endocrine: Reports: No Symptoms Reported - Vitals Vitals: Last Vital Signs Temp 36.7 C 12/31/20 10:30 Pulse 92 12/31/20 10:30 Resp 19 12/31/20 10:30 BP 100/63 12/31/20 10:30 Pulse Ox 99 12/31/20 10:30 - Abnormal Lab Findings Abnormal Lab Findings: Abnormal Lab Results 12/30/20 12/30/20 12/30/20 Range/Units 11:02 11:02 18:55 WBC 22.4 H (4.0-10.5) K/mm3 RBC 3.91 L (4.2-5.4) M/mm3 Hgb 10.3 L (12.5-16.0) gm/dL Hct 34.0 L (37.0-47.0) % MCH 26.3 L (27-31) pg MCHC 30.3 L (32-36) g/dl RDW 16.9 H (11.5-14.0) % Neutrophils % (Manual) 86 H (42-75) % Lymphocytes % (Manual) 4 L (20-51) % Basophils % (Manual) 2 H (0-1) % Neutrophils # (Manual) 19.3 H (1.3-6.0) K/mm3 Lymphocytes # (Manual) 0.9 L (1.5-3.5) k/mm3 Basophils # (Manual) 0.4 H (0.0-0.1) k/mm3 Atypic/Reactive Lymphs 3 H (0-2) % PT 12.1 H (9.1-10.7) Seconds INR (Anticoag Therapy) 1.17 H (0.92-1.08) INR BUN/Creatinine Ratio 34.4 H (9.0-21.6) Random Glucose 206 H (70-110) mg/dL ALT 17 L (19-67) U/L Albumin 2.7 L (3.4-5.0) gm/dl - Exam Constitutional: Present: Somnolent, Elderly, Thin and frail ENT Exam: Present: normal ENT inspection, hearing grossly normal Neck: Present: non-tender, full range of motion, supple, normal inspection, trachea midline Breasts: Present: Exam deferred, Nontender Respiratory: Present: no respiratory distress, no accessory muscle use, decreased breath sounds Cardiovascular/Chest: Present: normal peripheral pulses, no chest tenderness, no edema, no gallop, no JVD, no murmur, no rub Abdomen: Present: Normal bowel sounds, soft, nontender, nondistended, no rebound tenderness, no hepatospenomegaly, no masses Extremity: Present: no pedal edema, no calf tenderness, other - Right hip covered by clean dry surgical dressings, no signs of active bleeding or infectio n. Skin Exam: Present: normal color, warm/dry, no cyanosis Lymphatic: Present: no adenopathy Neurologic: Present: other Cauti Physician Documentation - Urinary Catheter Management Urethral (Del Angel) Urethral Indwelling: Yes Date of Insertion: 12/28/20 Time of Insertion: 18:30 Assessment/Plan Plan Narrative: We will continue to monitor the patient during the postop period and follow recommendations from Ortho. - Problems/Diagnosis (1) Closed right hip fracture Problem: Acute (2) UTI (urinary tract infection) Problem: Suspected (3) Fracture, intertrochanteric, right femur Problem: Acute Qualifiers: Encounter type: initial encounter Fracture type: closed Fracture alignment: displaced Qualified Code(s): S72.141A - Displaced intertrochanteric fracture of right femur, initial encounter for closed fracture (4) Fall Problem: Acute Qualifiers: (5) Osteoporosis Problem: Chronic (6) Fracture of left hip Problem: Acute (7) COPD (chronic obstructive pulmonary disease) Problem: Chronic (8) UTI (urinary tract infection) Problem: Resolved (9) Chronic respiratory failure with hypoxia Problem: Chronic (10) Protein calorie malnutrition Problem: Acute (11) GERD (gastroesophageal reflux disease) Problem: Chronic Qualifiers: (12) Chronic respiratory failure Problem: Chronic Qualifiers: Respiratory failure complication: hypoxia Qualified Code(s): J96.11 - Chronic respiratory failure with hypoxia (13) Status post-operative repair of closed fracture of right hip Problem: Acute
[2020-12-31] MEDS: ALBUTEROL SULFATE 2.5 MG/0.5 ML VIAL.NEB IH PRN (18:07)
[2020-12-31] MEDS: OXYBUTYNIN CHLORIDE 5 MG TABLET PO SCH (20:38)
[2020-12-31] MEDS: SENNOSIDES/DOCUSATE SODIUM 1 TAB TABLET PO SCH (20:38)
[2020-12-31] MEDS: HYDROcodone/ACETAMINOPHEN 1 EACH TABLET PO PRN (20:39)
[2021-01-01] MEDS: BUDESONIDE 0.5 MG/2 ML VIAL.NEB IH SCH ×2 (06:12→18:10)
[2021-01-01 06:42] LABS: Hematocrit 31.9 % (37.0-47.0); Hemoglobin 9.6 gm/dL (12.5-16.0); Mean Cell Volume 86.9 fl (78-100); Mean Corpuscular Hemoglobin 26.2 pg (27-31); Mean Corpuscular Hgb Conc 30.1 g/dl (32-36); Mean Platelet Volume 12.1 fl (8-12.5); Platelet Count 223 K/mm3 (150-450); Red Blood Count 3.67 M/mm3 (4.2-5.4); Red Cell Distribution Width 16.9 % (11.5-14.0); White Blood Count 13.3 K/mm3 (4.0-10.5)
[2021-01-01] MEDS: HYDROcodone/ACETAMINOPHEN 1 EACH TABLET PO PRN (06:47)
[2021-01-01 06:59] LABS: Anion Gap 11.8 mmol/L (6.8-13.8); BUN/Creatinine Ratio 38.7 (9.0-21.6); Calcium * 9.4 mg/dL (7.9-10.9); Carbon Dioxide 31.3 mmol/L (24-32.6); Estimated Creat Clear 44.4; Potassium 4.1 mmol/L (3.4-4.6)
[2021-01-01] MEDS: SERTRALINE HCL 50 MG TABLET PO SCH (08:04)
[2021-01-01] MEDS: FLUDROCORTISONE ACETATE 0.1 MG TABLET PO SCH (08:04)
[2021-01-01] MEDS: RIVAROXABAN 20 MG TABLET PO SCH (08:07)
--- NOTE | 2021-01-01 09:05 | PN ---
Subjective - Date and Time Seen Date: 01/01/21 Time: 08:25 Subjective Narrative: Is up in the chair for my exam, appears to be sleeping but wakens easily and makes eye contact. She denies having had surgery yesterday. Nursing reports decreased urination since yesterday, and funez remains in place. Objective - Review of Systems Generalized/Overall Review: Denies: Fever Respiratory: Reports: Shortness of Breath - baseline Cardiac: Denies: Edema Abdominal: Reports: No Symptoms Reported Genitourinary Symptoms: Reports: Other - decreased urine output via funez Neurological: Reports: Other - confusion - Vitals Vitals: Last Vital Signs Temp 37.6 C 01/01/21 06:37 Pulse 110 H 01/01/21 06:37 Resp 24 H 01/01/21 06:37 BP 129/82 01/01/21 06:37 Pulse Ox 95 01/01/21 06:37 - Abnormal Lab Findings Abnormal Lab Findings: Abnormal Lab Results 01/01/21 01/01/21 Range/Units 06:40 06:40 WBC 13.3 H D (4.0-10.5) K/mm3 RBC 3.67 L (4.2-5.4) M/mm3 Hgb 9.6 L (12.5-16.0) gm/dL Hct 31.9 L (37.0-47.0) % MCH 26.2 L (27-31) pg MCHC 30.1 L (32-36) g/dl RDW 16.9 H (11.5-14.0) % BUN 24 H (3-23) mg/dL BUN/Creatinine Ratio 38.7 H (9.0-21.6) Random Glucose 176 H (70-110) mg/dL - Exam Constitutional: Present: No distress, Elderly, Thin and frail Respiratory: Present: lungs clear, no respiratory distress, other - using 3.5 L via NC Cardiovascular/Chest: Present: tachycardia Abdomen: Present: soft, nontender Extremity: Absent: lower extremity edema Appearance: Present: impaired recent memory Eye contact: Present: good eye contact Cauti Physician Documentation - Urinary Catheter Management Urethral (Funez) Urethral Indwelling: Yes Date of Insertion: 12/28/20 Time of Insertion: 18:30 Assessment/Plan - Problems/Diagnosis (1) Closed right hip fracture Problem: Acute Narrative: She is POD #1 for Closed reduction, cephalo-medullary fixation right intertrochanteric femur fracture. Pain appears to be controlled. she has used morphine once, and norco twice since her surgery. Has not used tramadol. Family reports she "gets loopy" with pain meds, so difficult to discern her m entation. When she meets PT goals, she will be OK to return to the [facility]. Her urine output has been low since surgery. Her creatinine and GFR were fine this morning, so I anticipate her urine output will increase anytime. Will give a 250 cc bolus of NS over the next 2 hours. (2) Tachycardia Problem: Acute Narrative: She's been tachycardic since surgery. EKG pending. (3) UTI (urinary tract infection) Problem: Suspected Narrative: She received 3 doses of rocephin, so she has completed the treatment course for the e coli UTI. She reported increased urinary frequency at admission assessment. (4) COPD (chronic obstructive pulmonary disease) Problem: Chronic (5) Chronic respiratory failure with hypoxia Problem: Chronic Narrative: She uses 3L O2 at baseline, and is currently being given 3.5L. Wean to baseline O2. The increase in oxygen requirement may have been due to pain med administration. She uses several COPD meds. Fludrocortisone is also on her med list, and I am unable to find if this is for COPD or an alternate diagnosis. (6) Protein calorie malnutrition Problem: Chronic (7) Back pain Problem: Chronic Qualifiers: (8) GERD (gastroesophageal reflux disease) Problem: Chronic Qualifiers: (9) Renal cell carcinoma Problem: Chronic Qualifiers: (10) Osteoporosis Problem: Chronic Qualifiers: (11) Type II diabetes mellitus Problem: Chronic Qualifiers: (12) HTN (hypertension) Problem: Chronic Qualifiers: (13) Dementia Problem: Suspected
[2021-01-01] MEDS ORDERED: NORMAL SALINE 250 ML IV ONE (10:22)
[2021-01-01] MEDS ORDERED: NORMAL SALINE 250 ML IV PRN (10:23)
--- NOTE | 2021-01-01 11:29 | PN ---
Subjective - Date and Time Seen Date: 01/01/21 Time: 11:27 Subjective Narrative: Subjective: Reports no concerns. Was able to get to the chair with therapy. Pain is well-controlled. Voiding without any complications. Tolerating by mouth intake. Physical exam: Alert and oriented to person Right lower extremity: Palpable dorsalis pedis pulse. Sensation grossly intact to light touch. Dressings clean and dry. Able to flex and extend ankle and toes. No excessive drainage. Calf and thigh are soft and nontender. Assessment: Postop day 1 status post right hip cephalomedullary fixation. Plan: Continue with physical and occupational therapy weightbearing as tolerated. Continue with anticoagulation -she will need 6 weeks of Xarelto. If there is no other reason for her to be on this she can be discontinued on this medication after 6 weeks. 24 hours postoperative prophylactic antibiotics. Pain control with goal to rely on oral medications. Continue bowel regimen. Will need 6 weeks with walker or assistive device to protect joint while ambulating during the recovery process. Discharge planning -from an orthopedic standpoint she can be transferred when she is stable. Keep the wound dry. Cover with dry gauze and tape. Change every 2 to 3 days as needed. Continue physical therapyweightbearing as tolerated with range of motion as tolerated. I will see her back in 2 to 3 weeks with x-rays. Objective - Vitals Vitals: Last Vital Signs Temp 36.2 C 01/01/21 10:00 Pulse 100 01/01/21 10:00 Resp 20 01/01/21 10:00 BP 113/68 01/01/21 10:00 Pulse Ox 94 01/01/21 10:00 - Abnormal Lab Findings Abnormal Lab Findings: Abnormal Lab Results 01/01/21 01/01/21 Range/Units 06:40 06:40 WBC 13.3 H D (4.0-10.5) K/mm3 RBC 3.67 L (4.2-5.4) M/mm3 Hgb 9.6 L (12.5-16.0) gm/dL Hct 31.9 L (37.0-47.0) % MCH 26.2 L (27-31) pg MCHC 30.1 L (32-36) g/dl RDW 16.9 H (11.5-14.0) % BUN 24 H (3-23) mg/dL BUN/Creatinine Ratio 38.7 H (9.0-21.6) Random Glucose 176 H (70-110) mg/dL Cauti Physician Documentation - Urinary Catheter Management Urethral (Del Angel) Urethral Indwelling: Yes Date of Insertion: 12/28/20 Time of Insertion: 18:30 Assessment/Plan - Problems/Diagnosis (1) Fracture, intertrochanteric, right femur Problem: Acute Qualifiers: Encounter type: subsequent encounter Fracture type: closed Fracture alignment: displaced Fracture healing: with routine healing Qualified Code(s): S72.141D - Displaced intertrochanteric fracture of right femur, subsequent encounter for closed fracture with routine healing
[2021-01-01] MEDS ORDERED: METOPROLOL TARTRATE 25 MG TABLET PO SCH (18:00)
[2021-01-01] MEDS: ALBUTEROL SULFATE 2.5 MG/0.5 ML VIAL.NEB IH PRN (18:10)
[2021-01-01] MEDS: MORPHINE SULFATE 2 MG/ML DISP.SYRIN IV PRN (18:57)
[2021-01-01] MEDS: SENNOSIDES/DOCUSATE SODIUM 1 TAB TABLET PO SCH (20:28)
[2021-01-02] MEDS: BUDESONIDE 0.5 MG/2 ML VIAL.NEB IH SCH (06:02)
[2021-01-02] MEDS: ALBUTEROL SULFATE/IPRATROPIUM 3 ML NEBU IH PRN (06:03)
[2021-01-02] MEDS: HYDROcodone/ACETAMINOPHEN 1 EACH TABLET PO PRN (08:18)
[2021-01-02] MEDS: SERTRALINE HCL 50 MG TABLET PO SCH (08:19)
[2021-01-02] MEDS: RIVAROXABAN 20 MG TABLET PO SCH (08:19)
[2021-01-02] MEDS: FLUDROCORTISONE ACETATE 0.1 MG TABLET PO SCH (08:19)
--- NOTE | 2021-01-02 08:50 | DS ---
(1) Closed right hip fracture Problem: Acute (2) Tachycardia Problem: Acute (3) UTI (urinary tract infection) Problem: Suspected (4) COPD (chronic obstructive pulmonary disease) Problem: Chronic (5) Chronic respiratory failure with hypoxia Problem: Chronic (6) Protein calorie malnutrition Problem: Chronic (7) Back pain Problem: Chronic Qualifiers: (8) GERD (gastroesophageal reflux disease) Problem: Chronic Qualifiers: (9) Renal cell carcinoma Problem: Chronic Qualifiers: (10) Osteoporosis Problem: Chronic Qualifiers: (11) Type II diabetes mellitus Problem: Chronic Qualifiers: (12) HTN (hypertension) Problem: Chronic Qualifiers: (13) Dementia Problem: Suspected Date of Discharge:: 01/02/21 Hospital Course: Patient with PMHx of previous hip fracture, COPD on 2L O2 baseline, GERD, renal cell carcinoma is a resident of the [facility], where she fell the evening of admission. Xray shows an acute intertrochanteric right hip fracture. She has severe osteoporosis and numerous compression fractures of the thoracic spine and L1, which are age indeterminate. She had a fall and subsequent left hip fracture repaired surgically last year. UA positive for blood, nitrates, and bacteria, so she was given a dose of rocephin for UTI. She has had increased frequency, but denies dysuria. Daughter reports dementia has been suspected, but she hasn't been formally evaluated for it yet. She was on Xarelto at the [facility]. This script was felt to be continued from her previous hip fracture repair. With her COPD, she could only receive spinal anesthetic, as she was too high risk for cardiovascular complication. She needed 72 hours after her last dose of Xarelto to do the surgery, which was done on 12/31/20. She had some sinus tachycardia after surgery, and was started on 12.5 mg metoprolol bid. This was attributed to post surgical sequela. She was felt to be at her baseline on the day of DC, and went back to the [facility]. The Xarelto is to be done for 6 weeks only, and is to be DC'd after that time. Procedures Performed: see notes below - Closed reduction, cephalo-medullary fixation right intertrochanteric femur fracture Results and Findings: Lab Pending Results 12/28/20 18:18: WBC 21.7 H, RBC 4.39, Hgb 11.4 L, Hct 38.2, MCV 87.0, MCH 26.0 L, MCHC 29.8 L, RDW 16.8 H, Plt Count 304, MPV 11.5, Neutrophils % (Manual) 74, Band Neuts % (Manual) 1, Lymphocytes % (Manual) 19 L, Monocytes % (Manual) 5, Basophils % (Manual) 1, Neutrophils # (Manual) 16.1 H, Lymphocytes # (Manual) 4.1 H, Monocytes # (Manual) 1.1 H, Basophils # (Manual) 0.2 H, Platelet Estimate Normal, Giant Platelets 1+, Target Cells Trace 12/28/20 18:18: PT 14.0 H, INR (Anticoag Therapy) 1.37 H, PTT (Ada) 32.5 H 12/28/20 18:18: Sodium 140, Plasma Sodium 141, Potassium 4.8 H, Chloride 103, Carbon Dioxide 30.7, Anion Gap 11.1, BUN 32 H D, Creatinine 0.80, Est GFR (Non- Af Amer) 73 D, BUN/Creatinine Ratio 40.0 H, Random Glucose 162 H, Calcium 9.4, Calcium Adj for Albumin 9.8, Total Bilirubin 0.3, AST 21, ALT 22, Alkaline Phosphatase 143, Total Protein 8.2, Albumin 3.1 L 12/28/20 18:18: Blood Type O Positive, Antibody Screen Negative 12/28/20 18:18: Troponin I Less than 0.017 12/28/20 18:18: Procalcitonin Less than 0.05 L 12/28/20 18:20: SARS-CoV-2 (PCR) Not detected 12/28/20 18:30: Urine Color Yellow, Urine Appearance Clear, Urine pH 5.5, Ur Specific [place] >=1.030, Urine Protein Negative, Urine Glucose (UA) Negative, Urine Ketones Negative, Urine Blood 25 H, Urine Nitrate Positive H, Urine Bilirubin Negative, Urine Urobilinogen Normal, Ur Leukocyte Esterase Negative, Urine RBC Trace, Urine WBC Trace H, Ur Epithelial Cells Trace, Urine Bacteria 3+ H, Urine Culture Comments Culture to follow 12/30/20 11:02: WBC 22.4 H, RBC 3.91 L, Hgb 10.3 L, Hct 34.0 L, MCV 87.0, MCH 26.3 L, MCHC 30.3 L, RDW 16.9 H, Plt Count 216, MPV 11.8, Neutrophils % (Manual) 86 H, Band Neuts % (Manual) 1, Lymphocytes % (Manual) 4 L, Monocytes % (Manual) 2, Eosinophils % (Manual) 2, Basophils % (Manual) 2 H, Neutrophils # (Manual) 19.3 H, Lymphocytes # (Manual) 0.9 L, Monocytes # (Manual) 0.4, Eosinophils # (Manual) 0.4, Basophils # (Manual) 0.4 H, Atypic/Reactive Lymphs 3 H, Platelet Estimate Normal, Anisocytosis Trace 12/30/20 11:02: Sodium 137, Plasma Sodium 139, Potassium 4.5, Chloride 102, Carbon Dioxide 29.4, Anion Gap 10.1, BUN 22, Creatinine 0.64, Est GFR (Non-Af Amer) 94 D, BUN/Creatinine Ratio 34.4 H, Random Glucose 206 H, Calcium 9.2, Calcium Adj for Albumin 9.9, Total Bilirubin 0.3, AST 17, ALT 17 L, Alkaline Phosphatase 118, Total Protein 7.2, Albumin 2.7 L 12/30/20 18:55: PT 12.1 H, INR (Anticoag Therapy) 1.17 H 01/01/21 06:40: WBC 13.3 H D, RBC 3.67 L, Hgb 9.6 L, Hct 31.9 L, MCV 86.9, MCH 26.2 L, MCHC 30.1 L, RDW 16.9 H, Plt Count 223, MPV 12.1 01/01/21 06:40: Sodium 140, Plasma Sodium 141, Potassium 4.1, Chloride 101, Carbon Dioxide 31.3, Anion Gap 11.8, BUN 24 H, Creatinine 0.62, Est GFR (Non-Af Amer) 98, BUN/Creatinine Ratio 38.7 H, Random Glucose 176 H, Calcium 9.4 Discharge Location: [facility] Disposition: SNF Condition: Fair Level of Care: SNF Discharge Activity: Weight bearing - as tolerated Discharge Diet: General/regular food [facility] Therapy: Physical Therapy, Occupation Therapy, Speech Therapy Referrals: Tal Nash MD [Primary Care Provider] - Additional Patient Instructions (free text): Back to [facility], for PT, OT and ST to evaluate and treat. Follow up [facility] Orthopedic office appointment on FridayJanuary 15 at 8:00am with Xrays. Orthopedics Plan: Continue with physical and occupational therapy weightbearing as tolerated. Continue with anticoagulation -she will need 6 weeks of Xarelto. If there is no other reason for her to be on this she can be discontinued on this medication after 6 weeks. 24 hours postoperative prophylactic antibiotics. Pain control with goal to rely on oral medications. Continue bowel regimen. Will need 6 weeks with walker or assistive device to protect joint while ambulating during the recovery process. Discharge planning -from an orthopedic standpoint she can be transferred when she is stable. Keep the wound dry. Cover with dry gauze and tape. Change every 2 to 3 days as needed. Continue physical therapyweightbearing as tolerated with range of motion as tolerated. Prescriptions (Any new or edited meds): Metoprolol Tartrate [Lopressor] 12.5 mg PO BID #60 tab Transmission Status: Pending to [facility] HYDROcodone/ACETAMINOPHEN [Crescent 5-325] 1 ea PO Q6H PRN #45 tab PRN Reason: Moderate Pain (Pain Scale 4-6) Transmission Status: Sent to [facility] Sennosides/Docusate Sodium [Senokot-S] 2 tab PO HS #30 tab Transmission Status: Pending to [facility] Acetaminophen [Tylenol] 500 mg PO Q6H PRN #60 tab PRN Reason: Mild Pain (Pain Scale 1-3) Transmission Status: Pending to [facility] Rivaroxaban [Xarelto] 10 mg PO DAILY #42 tab Transmission Status: Pending to [facility] Complete Home Medications List: Complete Home Medication List: aspirin 81 mg chewable tablet 81 mg PO DAILY 04/21/19 oxybutynin chloride 5 mg tablet 2.5 mg PO HS 04/21/19 potassium chloride 10 mEq tablet,extended release 10 meq PO DAILY 04/21/19 acetaminophen 500 mg tablet 2 tab PO Q6H PRN 06/08/19 calcium carbonate 600 mg (1,500 mg)-vitamin D3 500 unit capsule 1 tab PO TID cap 06/08/19 fludrocortisone 0.1 mg tablet 0.1 mg PO DAILY #28 tab 06/08/19 ipratropium 0.5 mg-albuterol 3 mg (2.5 mg base)/3 mL nebulization soln 3 ml IH Q6H PRN 06/08/19 albuterol sulfate 1.25 mg IH Q2H PRN 07/13/19 albuterol sulfate 90 mcg/actuation aerosol inhaler 2 puff IH Q4H PRN #85 g 07/13/19 Lactobacillus Acidophilus [Acidophilus] 2 ea PO BID 11/19/19 Omeprazole 40 mg PO DAILY 02/04/20 Acetaminophen [Tylenol] 650 mg PO Q6H PRN 12/28/20 Albuterol Sulfate [Ventolin Hfa] 2 puff IH Q4H PRN 12/28/20 Budesonide [Pulmicort Respules] 2 ml IH BID 12/28/20 Cyanocobalamin (Vitamin B-12) [Vitamin B-12] 500 mcg PO DAILY 12/28/20 Sertraline HCl [Zoloft] 50 mg PO DAILY 12/28/20 traMADol HCL [Tramadol HCl] 50 mg PO Q8H PRN 12/28/20 Acetaminophen [Tylenol] 500 mg PO Q6H PRN #60 tab 01/02/21 HYDROcodone/ACETAMINOPHEN [Crescent 5-325] 1 ea PO Q6H PRN #45 tab 01/02/21 Metoprolol Tartrate [Lopressor] 12.5 mg PO BID #60 tab 01/02/21 Rivaroxaban [Xarelto] 10 mg PO DAILY #42 tab 01/02/21 Sennosides/Docusate Sodium [Senokot-S] 2 tab PO HS #30 tab 01/02/21 Forms: Patient Portal Registration
[2021-01-02] MEDS ORDERED: METOPROLOL TARTRATE 25 MG TABLET PO SCH (09:00)
[2021-01-02 09:52] LABS: Albumin * 2.1 gm/dl (3.4-5.0); Anion Gap 10.7 mmol/L (6.8-13.8); BUN/Creatinine Ratio 48.1 (9.0-21.6); Bilirubin, Total 0.5 mg/dL (0.0-1.1); Ca. Corrected For Albumin 9.9 mg/dL (8.4-10.2); Calcium * 8.7 mg/dL (7.9-10.9); Carbon Dioxide 29.1 mmol/L (24-32.6); Potassium 3.8 mmol/L (3.4-4.6); Total Protein 6.6 gm/dL (6.2-8.2)
[2021-01-02 10:19] VITALS: BP 113/59
== END 2021-01-02 11:00 | DRG 481 ==
LOC: ER 17:10 → MS 19:44
PROVIDERS: ADMIT Family Medicine; ATTEND Family Medicine
DX: M54.2 Cervicalgia; M25.511 Pain in right shoulder; M81.0 Age-related osteoporosis without current pathological fracture; J96.11 Chronic respiratory failure with hypoxia; R41.0 Disorientation, unspecified; J44.9 Chronic obstructive pulmonary disease, unspecified; S72.141A Displaced intertrochanteric fracture of right femur, initial encounter for closed fracture; E11.9 Type 2 diabetes mellitus without complications; S09.90XA Unspecified injury of head, initial encounter; I97.191 Other postprocedural cardiac functional disturbances following other surgery; E46 Unspecified protein-calorie malnutrition; Z68.20 Body mass index [BMI] 20.0-20.9, adult; W01.0XXA Fall on same level from slipping, tripping and stumbling without subsequent striking against object, initial encounter; C64.9 Malignant neoplasm of unspecified kidney, except renal pelvis; I45.10 Unspecified right bundle-branch block; N39.0 Urinary tract infection, site not specified; I44.0 Atrioventricular block, first degree; I10 Essential (primary) hypertension; K21.9 Gastro-esophageal reflux disease without esophagitis